=== PATIENT | male | born 1940 | race Caucasian/White ===

== ENCOUNTER → 2017-12-12 | Outpatient (CLI) | payer MEDICARE, OTHER ==
[~2017-12-12] MED LIST: APAP650 PO; ASA81BEC PO; ASPIRIN325 PO; BENTYL 20 MG TA20 M1 PO; CIPRO500 MG PO; FLEXERIL PO; FOLIC ACID1 MG PO; HYDROCODONE-AP1 EAC6 PO; HYDROCODONE-APA1 TA1 PO; KEPPRA 500 MG500 M1 PO; LAMICTAL100 MG PO; LASIX 40 MG TAB40 M2 PO; LIPITOR 20 MG T20 M1 PO; LISINOPRIL10 MG PO; LISINOPRIL5 MG PO; METHOTREXATE 22.5 M1 PO; MULTI VITAMIN1 EACH PO; NORCO 5-325 TA1 EACH PO; PEGANONE PO; PREDNISONE 10 M10 MG PO; PROZAC20 MG PO; PROZAC40 MG PO; SIMVASTATIN40 MG PO; TIKOSYN500 MCG PO; TRAMADOL 50 MG50 MG PO; VANCO 1 GR1 GM/250 M IV; VITAMIN D1000 UNIT PO; XARELTO10 MG PO; XARELTO20 MG PO; ZOCOR20 MG PO; ZOFRAN4 MG PO
== END ==
LOC: M.ULTRA 07:35
DX: R10.31 Right lower quadrant pain (principal)

== ENCOUNTER 2018-03-28 14:50 | Inpatient (IN) | payer MEDICARE, OTHER ==
[~2018-03-28] VITALS: Ht 170.2 cm; Wt 164.3 kg
[~2018-03-28 14:50] MED LIST changes: -APAP650 PO; -FOLIC ACID1 MG PO; -KEPPRA 500 MG500 M1 PO; -MULTI VITAMIN1 EACH PO; -PROZAC20 MG PO; -SIMVASTATIN40 MG PO; -TRAMADOL 50 MG50 MG PO; -VITAMIN D1000 UNIT PO; -XARELTO10 MG PO
[2018-03-28 15:27] LABS: ABSOLUTE BASOPHILS 0.1 thou/uL (0.0-0.2); ABSOLUTE EOSINOPHILS 0.1 thou/uL (0.0-0.7); ABSOLUTE LYMPHOCYTES 0.9 thou/uL (0.8-5.3); ABSOLUTE MONOCYTES 0.6 thou/uL (0.0-1.2); ABSOLUTE NEUTROPHILS 5.2 thou/uL (1.6-8.1); BASOPHILS 0.9 %; EOSINOPHILS 1.4 %; HEMATOCRIT 32.2 % (42.0-52.0); HEMOGLOBIN 10.6 gm/dL (14.0-18.0); MCH 30.8 pg (26.0-34.0); MCV 93.3 fL (80.0-100.0); MONOCYTES 8.2 %; MPV 8.4 fl. (7.2-11.1); NUCLEATED RBCS 0 /100WBC; PLATELET COUNT* 130 thou/uL (150-400); POLYS 76.5 %; RBC 3.46 mil/uL (4.50-6.00); RDW-CV 13.8 % (10.5-14.5); WBC 6.8 thou/uL (4.0-11.0)
[2018-03-28 15:41] LABS: APTT 25.2 Seconds (25.0-31.3); INR 1.1; PROTIME 10.6 Seconds (9.20-11.50)
[2018-03-28 15:42] LABS: ANION GAP 1 mmol/L (7-16); BUN 21 mg/dL (7-18); CHLORIDE 107 mmol/L (98-107); CO2 32 mmol/L (21-32); CREATININE 1.4 mg/dL (0.6-1.3); GLUCOSE 116 mg/dL (70-99); POTASSIUM 4.4 mmol/L (3.5-5.1); SODIUM 140 mmol/L (136-145)
[2018-03-28 15:55] LABS: ALBUMIN 3.3 g/dL (3.4-5.0); ALKALINE PHOSPHATASE 74 U/L (46-116); CK-MB MASS 1.7 ng/mL (<0.5-3.6); NT-PRO BRAIN NAT PEPTIDE 1890 pg/mL (<300); SGOT 20 U/L (15-37); SGPT 17 U/L (30-65); TOTAL BILIRUBIN 0.4 mg/dL (<0.1-1.0); TROPONIN-I LEVEL <0.06 ng/mL (<0.06)
[2018-03-28 17:28] VITALS: BP 180/87
[2018-03-28 20:00] VITALS: BP 116/69
[2018-03-29] VITALS (7 sets, daily range): BP systolic 110–181; BP diastolic 55–85
[2018-03-29 11:41] LABS: BE 4.5 mmol/L (-2 to +3); HCO3 28.8 mmol/L (22.0-26.0); PCO2 41.6 mmHg (35.0-45.0); PO2 79.4 mmHg (75.0-100.0); pH 7.458 (7.340-7.450)
[2018-03-30 04:00] VITALS: BP 114/60
[2018-03-30 04:53] LABS: ABSOLUTE BASOPHILS 0.1 thou/uL (0.0-0.2); ABSOLUTE EOSINOPHILS 0.3 thou/uL (0.0-0.7); ABSOLUTE LYMPHOCYTES 1.8 thou/uL (0.8-5.3); ABSOLUTE MONOCYTES 0.6 thou/uL (0.0-1.2); BASOPHILS 1.1 %; EOSINOPHILS 4.2 %; HEMATOCRIT 31.2 % (42.0-52.0); HEMOGLOBIN 10.4 gm/dL (14.0-18.0); LYMPHOCYTES 26.4 %; MCH 31.2 pg (26.0-34.0); MCHC 33.5 g/dL (28.0-37.0); MONOCYTES 8.7 %; NUCLEATED RBCS 0 /100WBC; PLATELET COUNT* 124 thou/uL (150-400); POLYS 59.6 %; RBC 3.35 mil/uL (4.50-6.00); RDW-CV 13.9 % (10.5-14.5); WBC 6.7 thou/uL (4.0-11.0)
[2018-03-30 04:57] LABS: CALCIUM 8.9 mg/dL (8.5-10.1); CREATININE 1.4 mg/dL (0.6-1.3); POTASSIUM 4.3 mmol/L (3.5-5.1)
[2018-03-30 08:15] VITALS: BP 136/74
[2018-03-30 12:02] VITALS: BP 136/74
[2018-03-30 13:09] VITALS: BP 87/47
--- NOTE | 2018-03-30 14:41 | EKG ---
[place] [address] ELECTROCARDIOGRAM REPORT Name: MICHAEL ANDERSON Room: [address] IN [facility].#: [id number] Admission: 03/28/18 Attend Phys: Kita Blackburn Discharge: Date of : 38 Report #: [id number] THIS REPORT FOR: //name// [facility] ED Test Date: 2018-03-28 Test Time: 15:00:52 Pat Name: MICHAEL ANDERSON Department: Room: Gender: Truck Driver Instructor: Dianna JACKSON : 1940 Requested By: Scar Bryant Order Number: [id number] MD: Davis Carrasquillo Measurements Intervals [place] Rate: 73 P: 4 TX: 248 QRS: 10 QRSD: 162 T: 157 QT: 460 QTc: 507 Interpretive Statements Sinus rhythm Atrial premature complexes Prolonged TX interval Probable left atrial enlargement Left bundle branch block Compared to ECG 08/15/2017 17:25:48 Atrial premature complex(es) now present First degree AV block now present Left bundle-branch block now present Electronically Signed On 03-30-2018 14:41:35 CDT by Davis Carrasquillo [email or web address] <ELECTRONICALLY SIGNED> By: Davis Carrasquillo MD, FAC 03/30/18 1441 1500 1500 Davis Carrasquillo MD, FAC /EPI
[2018-03-30 20:00] VITALS: BP 147/71
[2018-03-31] VITALS: BP 140/77
[2018-03-31 04:00] VITALS: BP 136/81
[2018-03-31 07:51] VITALS: BP 132/70
[2018-03-31 12:00] VITALS: BP 126/57
[2018-03-31 15:27] LABS: URINE BILIRUBIN NEGATIVE (Negative); URINE BLOOD 3+ (Negative); URINE CLARITY CLEAR; URINE COLOR YELLOW; URINE GLUCOSE-RANDOM NEGATIVE (Negative); URINE KETONES NEGATIVE (Negative); URINE LEUKOCYTES-REFLEX NEGATIVE (Negative); URINE NITRITE-REFLEX NEGATIVE (Negative); URINE PROTEIN NEGATIVE (Negative); URINE UROBILINOGEN 0.2 E.U./dl (0.2-1.0)
[2018-03-31 15:35] LABS: BACTERIA-REFLEX 1-9 Few /HPF (None Seen); CRYSTALS None Seen /LPF (None Seen); HYALINE CASTS 4-10 Moderate /LPF (None Seen); SQUAMOUS 0-3 Few /LPF (0-3); URINE RBC >20 Many /HPF (0-2); URINE WBC-REFLEX 0-5 Rare /HPF (0-5)
[2018-03-31 16:00] VITALS: BP 120/49
[2018-03-31 20:00] VITALS: BP 126/54
[2018-04-01] VITALS: BP 146/74
[2018-04-01 04:00] VITALS: BP 99/61
[2018-04-01 04:53] LABS: CALCIUM 8.8 mg/dL (8.5-10.1); CREATININE 1.5 mg/dL (0.6-1.3); POTASSIUM 4.6 mmol/L (3.5-5.1)
[2018-04-01 08:00] VITALS: BP 106/50
[2018-04-01 12:00] VITALS: BP 120/60
[2018-04-01] MEDS ORDERED: TRAMADOL 50 MG50 MG PO (12:02)
[2018-04-01 12:47] LABS: CALCIUM 8.9 mg/dL (8.5-10.1); CREATININE 1.8 mg/dL (0.6-1.3); POTASSIUM 4.9 mmol/L (3.5-5.1)
[2018-04-01 14:18] VITALS: BP 158/69
[2018-04-01] MEDS ORDERED: LISINOPRIL10 MG PO (14:45)
[2018-04-01] MEDS ORDERED: APAP650 PO (14:46)
[2018-04-01] MEDS ORDERED: PROZAC20 MG PO (14:46)
[2018-04-01] MEDS ORDERED: VITAMIN D1000 UNIT PO (14:48)
[2018-04-01 16:00] VITALS: BP 144/69
[2018-06-08] MEDS ORDERED: LASIX 20 MG TAB20 MG PO (14:20)
== END 2018-04-01 18:15 | DRG 57 ==
LOC: M.ERS 14:50 → M.TBA-ER 16:32 → M.2W 16:32
PROVIDERS: Family Medicine; Physician Assistant Surgical; ADMIT Internal Medicine
DX: G31.83 Neurocognitive disorder with Lewy bodies (principal); I50.32 Chronic diastolic (congestive) heart failure; G40.909 Epilepsy, unspecified, not intractable, without status epilepticus; I65.23 Occlusion and stenosis of bilateral carotid arteries; E78.5 Hyperlipidemia, unspecified; M06.9 Rheumatoid arthritis, unspecified; F02.80 Dementia in other diseases classified elsewhere, unspecified severity, without behavioral disturbance, psychotic disturbance, mood disturbance, and anxiety; I73.9 Peripheral vascular disease, unspecified; F32.9 Major depressive disorder, single episode, unspecified; G47.30 Sleep apnea, unspecified; Z96.651 Presence of right artificial knee joint; Z88.6 Allergy status to analgesic agent; Z79.82 Long term (current) use of aspirin; Z79.899 Other long term (current) drug therapy; Z95.1 Presence of aortocoronary bypass graft; Z95.5 Presence of coronary angioplasty implant and graft; Z86.73 Personal history of transient ischemic attack (TIA), and cerebral infarction without residual deficits; Z87.891 Personal history of nicotine dependence; Z82.49 Family history of ischemic heart disease and other diseases of the circulatory system

== ENCOUNTER 2018-05-19 13:21 | Emergency (ER) | payer MEDICARE, OTHER ==
[~2018-05-19] VITALS: Ht 170.2 cm; Wt 72.6 kg
[~2018-05-19 13:21] MED LIST changes: +APAP650 PO; +PROZAC20 MG PO; +TRAMADOL 50 MG50 MG PO; +VITAMIN D1000 UNIT PO
[2018-05-19 14:05] LABS: ABSOLUTE BASOPHILS 0.1 thou/uL (0.0-0.2); ABSOLUTE LYMPHOCYTES 0.8 thou/uL (0.8-5.3); ABSOLUTE MONOCYTES 0.6 thou/uL (0.0-1.2); BASOPHILS 0.7 %; EOSINOPHILS 0.6 %; HEMATOCRIT 31.3 % (42.0-52.0); HEMOGLOBIN 10.4 gm/dL (14.0-18.0); LYMPHOCYTES 10.7 %; MCH 30.9 pg (26.0-34.0); MCHC 33.1 g/dL (28.0-37.0); MCV 93.3 fL (80.0-100.0); MONOCYTES 7.9 %; NUCLEATED RBCS 0 /100WBC; PLATELET COUNT* 131 thou/uL (150-400); POLYS 80.1 %; RBC 3.35 mil/uL (4.50-6.00); RDW-CV 14.8 % (10.5-14.5); WBC 7.5 thou/uL (4.0-11.0)
[2018-05-19 14:06] LABS: URINE BILIRUBIN NEGATIVE (Negative); URINE BLOOD TRACE (Negative); URINE CLARITY CLEAR; URINE COLOR YELLOW; URINE GLUCOSE-RANDOM NEGATIVE (Negative); URINE KETONES TRACE (Negative); URINE LEUKOCYTES-REFLEX NEGATIVE (Negative); URINE NITRITE-REFLEX NEGATIVE (Negative); URINE PROTEIN TRACE (Negative); URINE SPECIFIC GRAVITY 1.015 (1.005-1.030); URINE UROBILINOGEN 0.2 E.U./dl (0.2-1.0)
[2018-05-19 14:14] LABS: ANION GAP 8 mmol/L (7-16); BUN 38 mg/dL (7-18); CALCIUM 8.5 mg/dL (8.5-10.1); CHLORIDE 102 mmol/L (98-107); CO2 26 mmol/L (21-32); CREATININE 2.7 mg/dL (0.6-1.3); GLUCOSE 112 mg/dL (70-99); POTASSIUM 4.7 mmol/L (3.5-5.1); SODIUM 136 mmol/L (136-145)
[2018-05-19 14:20] LABS: ALBUMIN 3.3 g/dL (3.4-5.0); ALKALINE PHOSPHATASE 78 U/L (46-116); SGOT 20 U/L (15-37); SGPT 17 U/L (30-65); TOTAL BILIRUBIN 0.3 mg/dL (<0.1-1.0); TROPONIN-I LEVEL <0.06 ng/mL (<0.06)
[2018-05-19 14:59] VITALS: BP 141/80
[2018-06-08] MEDS ORDERED: LASIX 20 MG TAB20 MG PO (14:20)
== END 2018-05-19 15:00 | disposition home or self-care (01) ==
LOC: M.ERS 13:21
PROVIDERS: Physician Assistant
DX: R53.1 Weakness (principal); E86.0 Dehydration; G47.30 Sleep apnea, unspecified; M06.9 Rheumatoid arthritis, unspecified; Z96.651 Presence of right artificial knee joint; Z91.041 Radiographic dye allergy status; Z88.6 Allergy status to analgesic agent; Z95.1 Presence of aortocoronary bypass graft; Z95.5 Presence of coronary angioplasty implant and graft

== ENCOUNTER 2018-06-08 14:04 | Inpatient (IN) | payer MEDICARE, OTHER ==
[~2018-06-08] VITALS: Ht 182.9 cm; Wt 80.7 kg
[2018-06-08 14:05] VITALS: BP 134/50
--- NOTE | 2018-06-08 14:17 | NUR ---
PT CAME IN AND WAS CLEAND OF STOOL.
[2018-06-08] MEDS ORDERED: SIMVASTATIN40 MG PO (14:20)
[2018-06-08] MEDS ORDERED: LASIX 40 MG TAB40 M2 PO (14:20)
[2018-06-08] MEDS ORDERED: FOLIC ACID1 MG PO (14:22)
[2018-06-08] MEDS ORDERED: MULTI VITAMIN1 EACH PO (14:22)
[2018-06-08 14:37] LABS: HEMOGLOBIN 11.2 gm/dL (14.0-18.0); MCH 30.6 pg (26.0-34.0); MCV 92.7 fL (80.0-100.0); MPV 8.2 fl. (7.2-11.1); NUCLEATED RBCS 0 /100WBC; PLATELET COUNT* 143 thou/uL (150-400); RBC 3.66 mil/uL (4.50-6.00); RDW-CV 14.6 % (10.5-14.5)
[2018-06-08 14:47] LABS: CALCIUM 8.5 mg/dL (8.5-10.1); CREATININE 2.1 mg/dL (0.6-1.3); POTASSIUM 4.3 mmol/L (3.5-5.1)
[2018-06-08 14:48] LABS: APTT 24.7 Seconds (25.0-31.3); INR 1.1; PROTIME 11.1 Seconds (9.20-11.50)
[2018-06-08 14:59] LABS: ALBUMIN 3.4 g/dL (3.4-5.0); TOTAL BILIRUBIN 0.3 mg/dL (<0.1-1.0); TOTAL PROTEIN 7.8 g/dL (6.4-8.2)
[2018-06-08 15:01] LABS: TROPONIN-I LEVEL 1.1 ng/mL (<0.06)
[2018-06-08 15:13] LABS: ABSOLUTE LYMPHOCYTES 0.5 thou/uL (0.8-5.3); ABSOLUTE MONOCYTES 0.3 thou/uL (0.0-1.2); ABSOLUTE NEUTROPHILS 12.2 thou/uL (1.6-8.1)
[2018-06-08 18:23] VITALS: BP 124/70
--- NOTE | 2018-06-08 18:45 | NUR ---
PATIENT ADMITTED FROM ER TO ROOM 210 AT THIS TIME. ALERT AND ORIENTED X3. FORGETFUL. DENIES PAIN CURRENTLY, BUT DID HAVE BACK PAIN IN ER CONTROLLED WITH FENTANYL. DENIES CHEST PAIN, REPORTS FEELING SOB YESTERDAY AT HOME. BRUSING AND KNOT NOTED TO LEFT SIDE OF HEAD. BRUISING TO BILAT FEET/TOES. TOES CHRONICALLY SUBLAXED. PATIENT WAS FOUND ON FLOOR BY HOME HEALTH THERAPIST TODAY FOR UNKNOWN AMOUNT OF TIME. SERIAL TROPONINS ORDERED. O2 2L. VSS. ORIENTED TO ROOM AND ENVIROMENT. BED ALARM SET. WILL CONTINUE TO MONITOR.
[2018-06-08 18:48] VITALS: BP 118/62
[2018-06-08 20:00] VITALS: BP 109/53
[2018-06-09] VITALS: BP 140/72
[2018-06-09 04:00] VITALS: BP 140/78
[2018-06-09 05:50] LABS: HEMATOCRIT 29.9 % (42.0-52.0); HEMOGLOBIN 10.1 gm/dL (14.0-18.0); MCH 31.2 pg (26.0-34.0); MCHC 33.6 g/dL (28.0-37.0); MCV 92.8 fL (80.0-100.0); MPV 8.4 fl. (7.2-11.1); RBC 3.22 mil/uL (4.50-6.00); RDW-CV 14.6 % (10.5-14.5); WBC 9.8 thou/uL (4.0-11.0)
[2018-06-09 06:16] LABS: ALBUMIN 2.9 g/dL (3.4-5.0); CALCIUM 7.9 mg/dL (8.5-10.1); CREATININE 1.6 mg/dL (0.6-1.3); MAGNESIUM 2.1 mg/dL (1.8-2.4); POTASSIUM 4.5 mmol/L (3.5-5.1); TOTAL BILIRUBIN 0.4 mg/dL (<0.1-1.0); TOTAL PROTEIN 6.3 g/dL (6.4-8.2)
[2018-06-09 08:00] VITALS: BP 138/92
--- NOTE | 2018-06-09 14:11 | EKG ---
[place] [address] ELECTROCARDIOGRAM REPORT Name: MICHAEL ANDERSON Room: [address] ADM IN M.R.#: [id number] Admission: 06/08/18 Attend Phys: Breonna Campos MD Discharge: Date of : 38 Report #: [id number] THIS REPORT FOR: //name// [facility] ED Test Date: 2018-06-08 Test Time: 14:22:53 Pat Name: MICHAEL ANDERSON Department: Room: [facility] Gender: M Ux Engineer: : 1940 Requested By: Cristi Arteaga Order Number: [id number] MD: Davis Carrasquillo Measurements Intervals [place] Rate: 99 P: 223 OK: 126 QRS: 14 QRSD: 160 T: 176 QT: 411 QTc: 528 Interpretive Statements Sinus rhythm with first degree AV block Multiple ventricular premature complexes Left bundle branch block Compared to ECG 03/28/2018 15:00:52 Ventricular premature complex(es) now present Atrial premature complex(es) no longer present Electronically Signed On 06-09-2018 14:11:06 CDT by Davis Carrasquillo [email or web address] <ELECTRONICALLY SIGNED> By: Davis Carrasquillo MD, [facility] 06/09/18 1411 1422 1422 Davis Carrasquillo MD, [facility] /EPI
--- NOTE | 2018-06-09 15:10 | 2DMMODE ---
[place] [address] 2 D/M-MODE ECHOCARDIOGRAM Name: JUSTINMICHAEL Room: [address] IN [facility]#: [id number] Admission: 06/08/18 Attend Phys: Breonna Campos, Discharge: Date of : 38 Date of Service: 06/09/18 1510 Report #: [id number] THIS REPORT FOR: //name// APPROVED REPORT Study performed: 06/09/2018 11:35:15 EXAM: Comprehensive 2D, Doppler, and color-flow Echocardiogram Patient Location: In-Patient Room #: 210 Status: routine BSA: 2.18 HR: 80 bpm BP: 138/92 mmHg Rhythm: NSR Other Information Study Quality: Good Indications Murmur Syncope Elevated Troponin 2D Dimensions IVSd: 18.87 (7-11mm) LVOT Diam: 19.96 (18-24mm) LVDd: 46.10 mm PWd: 10.94 (7-11mm) Ascending Ao: 26.12 (22-36mm) LVDs: 34.49 (25-40mm) Aortic Root: 29.73 mm Volumes Left Atrial Volume (Systole) LA ESV Index: 34.60 mL/m2 Aortic Valve AoV Peak Mark.: 2.29 m/s AO Peak Gr.: 21.06 mmHg LVOT Max P.17 mmHg AO Mean Gr.: 10.42 mmHg LVOT Mean P.54 mmHg LVOT Max V: 1.14 m/s AO V2 VTI: 33.83 cm LVOT Mean V: 0.74 m/s SERGIO (VTI): 1.64 cm2 LVOT V1 VTI: 17.72 cm Mitral Valve E/A Ratio: 0.60 [place] [address] 2 D/M-MODE ECHOCARDIOGRAM Name: MICHAEL ANDERSON Room: [address] IN M.R.#: [id number] Admission: 06/08/18 Attend Phys: Breonna Campos, Discharge: Date of : 38 Date of Service: 06/09/18 1510 Report #: [id number] MV Decel. Time: 410.24 ms MV E Max Mark.: 0.73 m/s MV PHT: 118.97 ms MVA (PHT): 1.85 cm2 TDI E/Lateral E': 6.64 E/Medial E': 10.43 Medial E' Mark.: 0.07 m/s Lateral E' Mark.: 0.11 m/s Pulmonary Valve PV Peak Mark.: 1.16 m/s PV Peak Gr.: 5.34 mmHg Left Ventricle The left ventricle is normal size. Significant left ventricular systolic is dyssynergy noted consistent with bundle branch block. Moderate septal hypertrophy is present. Left ventricular systolic function is mildly decreased. LVEF is 40-45%. Grade I - abnormal relaxation pattern. Right Ventricle The right ventricle is normal size. The right ventricular systolic function is normal. Atria Left atrium is mildly dilated. Right atrium is mildly dilated. Aortic Valve Bioprosthetic aortic valve is present. Trace aortic regurgitation. No significant stenosis noted. Mitral Valve The mitral valve is normal in structure. Mild mitral regurgitation. No evidence of mitral valve stenosis. Tricuspid Valve The tricuspid valve is normal in structure. Unable to assess PA pressure. Trace tricuspid regurgitation. Pulmonic Valve The pulmonary valve is normal in structure. There is no pulmonic valvular regurgitation. Great Vessels The aortic root is normal in size[place] [address] 2 D/M-MODE ECHOCARDIOGRAM Name: MICHAEL ANDERSON Room: [address]#: [id number] Admission: 06/08/18 Attend Phys: Breonna Campos, Discharge: Date of : 38 Date of Service: 06/09/18 1510 Report #: [id number] visualized. Pericardium There is no pericardial effusion. <Conclusion> The left ventricle is normal size. Moderate septal hypertrophy is present. Left ventricular systolic function is mildly decreased. LVEF is 40-45%. Grade I - abnormal relaxation pattern. Significant left ventricular systolic is dyssynergy noted consistent with bundle branch block. Left atrium is mildly dilated. Right atrium is mildly dilated. Bioprosthetic aortic valve is present. Trace aortic regurgitation. No significant stenosis noted. Mild mitral regurgitation. Unable to assess PA pressure. Trace tricuspid regurgitation. <ELECTRONICALLY SIGNED> By: Carlos A Nascimento MD, FACC 06/09/181509 09 09 Carlos A Nascimento MD, FACC /INF
[2018-06-09 15:23] VITALS: BP 103/58
--- NOTE | 2018-06-09 15:59 | NUR ---
Pt A&O. Reports feeling weak and tired today, in agreement with going to skilled at sd, and wants to go to [facility]. Hx of skilled at [facility]. Hx of [facility] . Pt normally resides at home with his , is currently inpt also. is normally assists Pt at home. Pt has a walker and cane that he uses for mobility. CM to fax initial referral to [facility]. Following.
--- NOTE | 2018-06-09 17:44 | CARDNUC ---
[place] [address] CARDIAC NUCLEAR IMAGING REPORT Name: JUSTINMICHAEL Beverly Room: [address] IN [facility]#: [id number] Admission: 06/08/18 Attend Phys: Breonna Campos, Discharge: Date of : 38 Date of Service: 06/09/18 1744 Report #: [id number] THIS REPORT FOR: //name// APPROVED REPORT Study performed: 06/09/2018 07:45:00 Indication: Troponin elevation, Chest pain Patient Location: In-Patient Room #: 210 Stress Tech: Celena Medrano Stress Nurse: Yamileth Marin RN Ht: 6 ft 1 in Wt: 210 lbs BSA: 2.20 m2 BMI: 27.70 Medical History Medical History: Angina, CAD, HTN, Hyperlipidemia, Former Smoker, HTN, CKD, , Stroke/TIA, Seizures, Systolic murmur, Aortic Stenosis, Alcoholism Medications: ASA 81 mg, Furosemide, Lisinopril, Xarelto, Atorvastatin, Dofetilide Allergies: Contrast dye, Morphine Cardiac Risk Factors: Age, FHX of CAD, HTN, Hyperlipidemia, Past Smoker Previous Cardiac Procedures: CABG, PCI Pretest Chest Pain Characteristics: No chest pain Exercise History: Sedentary Physical Disabilities: High fall risk, recent fall. Resting Data Rest SPECT myocardial perfusion imaging was performed in supine position 30 minutes following the intravenous injection of 11.9 mCi of Tc-99m Sestamibi. Time of rest injection: 11:50 The images were gated to evaluate regional wall motion and calculate left ventricular ejection fraction. Administration Route: IV Administration Site: Left AC Pharmacologic Stress Pharmacologic stress test was performed by injecting Regadenoson 0.4 mg IV push over 10-15 seconds immediately followed by the intravenous injection of 32.9 mCi of Tc-99m Sestamibi. Time of stress injection: 13:50 [place] [address] CARDIAC NUCLEAR IMAGING REPORT Name: MICHAEL ANDERSON Room: [address] IN [facility]#: [id number] Admission: 06/08/18 Attend Phys: Breonna Campos, Discharge: Date of : 38 Date of Service: 06/09/18 1744 Report #: [id number] Administration Route: IV Administration Site: Left AC Heart Rate at time of stress injection: 97 bpm. Gated Stress SPECT was performed 40 minutes after stress injection. The images were gated to evaluate regional wall motion and calculate left ventricular ejection fraction. Stress Test Details Stress Test: Pharmacologic stress testing performed using 0.4 mg of regadenoson per 5 mL given IV over 10 seconds. Reason for pharmacologic stress test: physical limitation. HR Max Heart Rate (APMHR): 141 bpm Resting HR: 88 bpm Target HR (85% APMHR): 119 bpm Max HR Achieved: 97 bpm % of APMHR: 68 Recovery HR: 94 bpm BP Resting BP: 137/80 mmHg Recovery BP: 128/62 mmHg ECG Resting ECG: Sinus Rhythm, LBBB Stress ECG: Sinus Rhythm, LBBB ST Change: None Arrhythmia: None Recovery ECG: Sinus Rhythm, LBBB Recovery ST Change: None Recovery Arrhythmia: None Clinical Reason for Termination: Completed protocol Stress Symptoms: None Exercise duration: 0 min 0 sec Exercise capacity: 1.00 METs The patient tolerated Lexiscan infusion without significant symptoms. Nurse Comments Patient tolerated lexiscan while lying down, poor physical condition, unable to move much. Patient given Tramadol for pain by floor nurse prior to lexiscan. Systolic murmur reported but not heard on auscultation during this visit. Pt stable at end of test. Escorted via wheelchair to [facility] [place] [address] CARDIAC NUCLEAR IMAGING REPORT Name: MICHAEL ANDERSON Beverly Room: [address]#: [id number] Admission: 06/08/18 Attend Phys: Breonna Campos, Discharge: Date of : 38 Date of Service: 06/09/18 1744 Report #: [id number] Stress ECG Conclusion The baseline 12-lead EKG showed sinus rhythm with left bundle-branch block. EKGs obtained during and post Lexiscan infusion show sinus rhythm with left bundle-branch block. There were no stress-induced arrhythmias. Study Quality Study: Good Artifact: No artifact Study Data At rest, the left ventricular ejection fraction was 56%.. Post stress, the left ventricular ejection was 59%.. TID = 0.91. Perfusion Normal left ventricular perfusion. Wall Motion There is dyssynergy noted consistent with left bundle-branch block. There is a septal wall motion abnormality noted consistent with prior bypass procedure. Overall left ventricular systolic function is fairly well preserved. Nuclear Conclusion ECG Findings: non-diagnostic Clinical Findings: negative for ischemia Nuclear Findings: negative for ischemia Exercise Capacity: not assessed Left Ventricular Function: preserved Risk Study: low Myocardial perfusion images show no defect to suggest infarct or ischemia. Left ventricular systolic function is fairly well-preserved. This appears to be a low risk study. <Conclusion> The baseline 12-lead EKG showed sinus rhythm with left bundle-branch block. EKGs obtained during and post Lexiscan infusion show sinus rhythm with left bundle-branch block. There were no stress-induced arrhythmias. <ELECTRONICALLY SIGNED> By: Carlos A Nascimento MD, FACC 06/09/18 1744 174 174 Carlos A Nascimento MD, FACC /INF
[2018-06-09 20:00] VITALS: BP 98/58
[2018-06-10] VITALS: BP 174/82
[2018-06-10 04:00] VITALS: BP 141/87
[2018-06-10 05:01] LABS: HEMATOCRIT 29.9 % (42.0-52.0); HEMOGLOBIN 10.1 gm/dL (14.0-18.0); MCH 31.4 pg (26.0-34.0); MCHC 33.7 g/dL (28.0-37.0); MCV 93.2 fL (80.0-100.0); MPV 8.3 fl. (7.2-11.1); RBC 3.21 mil/uL (4.50-6.00); RDW-CV 14.2 % (10.5-14.5); WBC 9.8 thou/uL (4.0-11.0)
[2018-06-10 05:32] LABS: CALCIUM 8.3 mg/dL (8.5-10.1); CREATININE 1.5 mg/dL (0.6-1.3); MAGNESIUM 2.1 mg/dL (1.8-2.4); POTASSIUM 4.4 mmol/L (3.5-5.1)
--- NOTE | 2018-06-10 06:37 | NUR ---
PT ALERT ORIENTED TO SELF. CO OF L KNEE PAIN. TRAMADOL GIVEN. TURN Q 2 HRS. TELEMETRY SHOWS SR BBB. O2 AT 2 LITERS NC. NS AT 100MLS/HR.
--- NOTE | 2018-06-10 06:59 | NUR ---
PT HAD NO UOP AT [facility]. BLADDER SCAN 940MLS. DR DUGAN ORDERED A ONE TIME STRAIGHT CATH. 90MLS CLEAR YELLOW RETURN. BLADDER SCAN 0700 407MLS.
[2018-06-10 07:35] VITALS: BP 178/93
--- NOTE | 2018-06-10 08:48 | CON ---
[address] [address] CONSULTATION Name: JUSTINMICHAEL Beverly Room: [address] IN .R.#: [id number] Admission: 06/08/18 Attend Phys: Breonna Campos MD Discharge: Date of : 38 Report #: [id number] THIS REPORT FOR: //name// CC: Elmer Campos INDICATION: Elevated troponin, consistent with non-ST elevation myocardial infarction. HISTORY OF PRESENT ILLNESS: The patient is a very pleasant 78-year-old gentleman with a history of coronary artery disease and coronary artery bypass grafting on 2 separate occasions in the remote past. He has a history of paroxysmal atrial fibrillation. He has a history of TIA and CVA remotely and had been transiently anticoagulated, but is not on anticoagulation presently. The patient apparently fell at home, although the details are somewhat sketchy. He is slightly confused at this time. At times, he has reported that he fell in his bathroom, other times he reports that he fell outside. He does appear to have some contusions involving his left knee and shoulder area. No overt fractures noted. In this setting, he does report some intermittent chest pain. He did have an elevated troponin with a peak of 1.23 here in the hospital. His troponin is now trending downward. He denies any chest pain at this time. He is not having shortness of breath. He is without other cardiac complaint at this time. He does have a history of wjmayuty-rb-vqxbye aortic stenosis. PAST MEDICAL HISTORY: 1. Coronary artery disease with coronary artery bypass grafting times 2 in the past. 2. Carotid vascular disease with previous left carotid endarterectomy and right carotid stenting. 3. Ccghwwqf-va-qwwusu aortic stenosis. 4. Paroxysmal atrial fibrillation. 5. Chronic renal insufficiency. 6. Previous renal artery stenosis with stenting. 7. Hyperlipidemia. 8. History of total knee replacement. 9. Previous foot surgeries. 10. Dementia. 11. History of rheumatoid arthritis. 12. Hyperlipidemia. 13. Sleep apnea. 14. Right knee replacement. 15. Previous left wrist and elbow fracture. 16. Previous right wrist fracture. 17. Cerebral bleed 2003 from trauma. 18. Vagal nerve stimulator [place] [address] CONSULTATION Name: MICHAEL ANDERSON Room: [address]#: [id number] Admission: 06/08/18 Attend Phys: Breonna Campos MD Discharge: Date of : 38 Report #: [id number] SOCIAL HISTORY: The patient drinks alcohol rarely. He does not smoke. He quit remotely. FAMILY HISTORY: Noncontributory. HOME MEDICATIONS: Aspirin 81 mg daily, Tikosyn 500 mg b.i.d., Peganone 250 mg 1 tablet dinnertime, Prozac 20 mg daily, folate 1 mg daily, Lasix 40 mg daily, Lamictal 100 mg q.i.d., lisinopril 10 mg daily, multivitamin 1 tablet daily, simvastatin 40 mg in the evening, tramadol 50 mg q. 4 hours p.r.n. ALLERGIES: CONTRAST DYE AND MORPHINE. PHYSICAL EXAMINATION: VITAL SIGNS: Blood pressure 140/78, pulse 82 and regular. GENERAL: This is a pleasant gentleman in no distress. Mood and affect appropriate. HEENT: Extraocular muscles intact. Mucous membranes are moist. NECK: Shows no jugular venous distention. I do not appreciate carotid bruit. CHEST: Reveals clear lung elkins without wheezes or rales. CARDIAC: Reveals a regular rhythm with grade 3/6 systolic ejection murmur. I do not appreciate gallop. ABDOMEN: Reveals normal bowel sounds. The abdomen is soft, nontender. EXTREMITIES: Shows no edema. SKIN: Warm and dry. LABORATORY DATA: EKG shows sinus rhythm with first degree AV block and left bundle branch block. Labs are reviewed. Sodium 139, potassium 4.5, chloride 106, bicarbonate 26, BUN 35, creatinine 1.6, serum glucose 113. LFTs within normal limits. EGFR 42, albumin 2.9, total protein 6.3. White blood cell count 9.8, hemoglobin 10.1, platelet count 120,000. Initial troponin 1.01, subsequently 1.23, 0.88 and 0.69. Chest x-ray shows scarring of the lung bases, battery pack noted in the left chest wall with cervical electrodes in place. There appears to be a transcutaneous aortic valve replacement in place. IMPRESSION AND RECOMMENDATIONS: 1. Elevated troponin consistent with non-ST elevation myocardial infarction. The patient has history of coronary artery disease with CABG on 2 separate occasions. At this point in time, he is not having active chest pain. I would recommend stress testing and consider catheterization depending on the extent of ischemia identified. 2. Aortic valve stenosis, status post transcutaneous aortic valve replacement, repeat echocardiogram at this time. 3. Paroxysmal atrial fibrillation. The patient is maintaining sinus rhythm on [address] [place] [place] [address] CONSULTATION Name: MICHAEL ANDERSON Room: [address] IN .R.#: [id number] Admission: 06/08/18 Attend Phys: Breonna Campos MD Discharge: Date of : 38 Report #: [id number] Tikosyn. I would consider resuming Xarelto 20 mg daily as the patient does not have any overt bleeding problems. 4. History of hyperlipidemia. Continue simvastatin. Repeat fasting lipid profile. 5. Peripheral vascular disease, presently stable. He is not having these symptoms to suggest transient ischemic attack or stroke. He is not having any symptoms to suggest claudication. <ELECTRONICALLY SIGNED> By: Carlos A Nascimento MD, FACC 06/10/18 0848 0756 [id number] Nascimento MD, FACC /nt
[2018-06-10 10:21] LABS: URINE BILIRUBIN NEGATIVE (Negative); URINE BLOOD 3+ (Negative); URINE CLARITY CLEAR; URINE COLOR YELLOW; URINE GLUCOSE-RANDOM NEGATIVE (Negative); URINE KETONES NEGATIVE (Negative); URINE LEUKOCYTES-REFLEX NEGATIVE (Negative); URINE NITRITE-REFLEX NEGATIVE (Negative); URINE PROTEIN TRACE (Negative); URINE SPECIFIC GRAVITY 1.025 (1.005-1.030); URINE UROBILINOGEN 0.2 E.U./dl (0.2-1.0)
[2018-06-10 10:26] LABS: BACTERIA-REFLEX 1-9 Few /HPF (None Seen); CRYSTALS None Seen /LPF (None Seen); HYALINE CASTS 4-10 Moderate /LPF (None Seen); MUCUS 0-3 Light strn/LPF (None Seen); SQUAMOUS 0-3 Few /LPF (0-3); URINE WBC-REFLEX 0-5 Rare /HPF (0-5)
--- NOTE | 2018-06-10 11:05 | NUR ---
Mignon from [facility] here to see Pt, they are able to accept Pt at dc. Anticipate that Pt should be ready to dc within the next few days.
[2018-06-10 11:50] VITALS: BP 128/72
[2018-06-10 15:19] VITALS: BP 116/69
[2018-06-10 19:04] LABS: CHOLESTEROL 139 mg/dL (<200); HDL CHOLESTEROL 50 mg/dL (>40); LDL CHOLESTEROL 81 mg/dL (<100); TC:HDL 2.8 Ratio (Not establshd); TRIGLYCERIDE 43 mg/dL (<150); VLDL 9 mg/dL (<40)
[2018-06-10 19:08] LABS: SERUM ASSESSMENT Clear
[2018-06-10 20:00] VITALS: BP 147/80
[2018-06-11] VITALS: BP 147/72
[2018-06-11 04:00] VITALS: BP 103/55; BP 162/60
[2018-06-11 05:13] LABS: HEMATOCRIT 27.4 % (42.0-52.0); HEMOGLOBIN 9.2 gm/dL (14.0-18.0); MCH 31.1 pg (26.0-34.0); MCHC 33.7 g/dL (28.0-37.0); MCV 92.4 fL (80.0-100.0); MPV 8.1 fl. (7.2-11.1); RBC 2.96 mil/uL (4.50-6.00); RDW-CV 14.4 % (10.5-14.5); WBC 10.4 thou/uL (4.0-11.0)
[2018-06-11 05:32] LABS: CALCIUM 9.1 mg/dL (8.5-10.1); CREATININE 1.3 mg/dL (0.6-1.3); MAGNESIUM 1.9 mg/dL (1.8-2.4); POTASSIUM 4.5 mmol/L (3.5-5.1)
--- NOTE | 2018-06-11 06:02 | NUR ---
VITALS WNL. SEE MAR. SEE CHARTING. FALL PRECAUTIONS IN PLACE. HOURLY ROUNDING FOR SAFETY.
[2018-06-11 11:30] VITALS: BP 89/54
--- NOTE | 2018-06-11 12:02 | NUR ---
ASSUMED PT CARE AT 0730. VSS CHARTED. CONFUSE AND FORGETFUL. ORIENTED TO TIME AND SITUATION. CALL LIGHTS WITHIN REACH. FALL PRECAUTIONS MAINTAINED. HOURLY ROUNDING DONE FOR PATIENT SAFETY. STATED PAIN WHILE COUGHING IN CHEST, DENIES PAIN MEDICATION. UP WITH ASSIST AND WALKER. SAT MAINTAINED AT 2L OXYGEN WITH NASAL CANNULA.WILL CONTINUE TO MONITOR.
--- NOTE | 2018-06-11 14:48 | NUR ---
PT SEEN SITTING IN BDSIDE CHAIR COMFORTABLY. VSS AND CHARTED. O2 TITRATED DOWN TO 1L, WILL CONTINUE TO MONITOR THE SAT. CALL LIGHT WITHIN REACH. FALL PREACAUTIONS MAINTAINED. HYATT CLAMPED TO SEE IF HE HAS URINARY SENSATION. HAS GOOD APPETITE. NON PRODUCTIVE COUGH OBSERVED, COUGHING EFFORT FAIR. WILL CONTINUE TO MONIOR.
[2018-06-11 15:30] VITALS: BP 101/56
--- NOTE | 2018-06-11 18:59 | NUR ---
THIS RN HAS REVIEWED THE ASSESMENT AND NOTES OF TIM MONTGOMERY AND AGREES WITH THE CHARTING.
--- NOTE | 2018-06-11 19:26 | NUR ---
PT SAT NOTED 100% WITH 1L SO TAKEN OUT OF OXYGEN. SAT AT 0715 WAS 95%. UP WITH ASSIST AND WALKER. HYATT CLAMPED TO WATCH FOR SENSATION, NO SENSATION REPORTED SO RELEASED. ONLY HAD 50ML IN BLADDER AFTER CLAMP RELEASED. HYATT STILL DRAINING AT THIS TIME. NO SOA. NON PRODUCTIVE COUGH NOTED. GOOD APPETITE.
[2018-06-11 20:20] VITALS: BP 133/77
[2018-06-12] VITALS: BP 142/64
[2018-06-12 04:00] VITALS: BP 146/66
[2018-06-12 09:30] VITALS: BP 95/46
[2018-06-12 12:00] VITALS: BP 113/68
--- NOTE | 2018-06-12 14:16 | NUR ---
CHIEF WRITER INFORMED THAT THE PATIENT IS READY TO D/C [facility]. SPOKE TO ABIGAIL TO INFORM OF PATIENT'S D/C AND SHE INFORMS THAT THE FACILITY IS ABLE TO PROVIDE TRANSPORT TODAY AT 1500. FAXED [facility] PATIENT'S D/C ORDERS. SPOKE TO THE PATIENT TO INFORM OF HIS DISCHARGE AND TIME OF TRANSPORT. PATIENT IN AGREEMENT. INFORMED THE RN IN-CHARGE OF THE PATIENT OF THE PATIENT'S TIME OF TRANSPORT AND WHERE TO CALL REPORT. RN IN AGREEMENT. CM WILL REMAIN AVAILABLE TO ASSIST AND FOLLOW NEEDED.
--- NOTE | 2018-06-12 14:47 | NUR ---
ASSUMED PT CARE AT 0700 PT IS ALERT AND ORIENTED X 4 PT DENIES PAIN OR SOA, PT IS UP WITH ASSIST X 1 PT IS A FALL RISK BED ALARM IS ON, PT IS SR 1ST BBB ON THE MONITOR, PT IV OUT PT IS CLEARED FOR DISCHARGE PT HYATT REMOVED PT ABLE TO FEEL SENSATION TO URINATE, WILL CONTINUE TO MONITOR
[2018-06-12] MEDS ORDERED: KEPPRA 500 MG500 M1 PO (15:08)
[2018-06-12] MEDS ORDERED: LIPITOR 20 MG T20 M1 PO (15:09)
[2018-06-12] MEDS ORDERED: LISINOPRIL10 MG PO (15:09)
[2018-06-12] MEDS ORDERED: XARELTO10 MG PO (15:10)
[2018-06-12 15:12] VITALS: BP 113/68
[2018-06-12] MEDS ORDERED: LISINOPRIL5 MG PO ×2 (15:18→15:19)
--- NOTE | 2018-06-15 08:19 | NUR ---
CM updated [facility] [place] of disposition
--- NOTE | 2018-06-22 09:50 | EEG ---
[address] [address] EEG STUDY REPORT Name: MICHAEL ANDERSON Room: [address] IN M.R.#: [id number] Admission: 06/08/18 Attend Phys: Breonna Campos MD Discharge: 06/12/18 Date of : 38 Report #: [id number] THIS REPORT FOR: //name// CC: Elmer Campos DATE OF SERVICE: 06/09/2018 This patient is being evaluated for altered mental status. EEG was done by placing the electrode by standard 10-20 system of electrode placement. Both referential and sequential montages were used for recording. Background activity in this patient's EEG is about 8 Hz and 30 microvolt. The patient went to sleep that is associated with bilateral slowing and vertex sharp waves. Photic stimulation is unremarkable. Throughout the record, no active epileptiform activity was noted. IMPRESSION: This patient's EEG demonstrates bilateral slowing, which is a nonspecific finding which can occur with encephalopathy, effect of psychotropic medication, dementia, etc. No active epileptiform activity was noticed during this record. <ELECTRONICALLY SIGNED> By: Robert Winter MD 06/22/18 0950 1550 [id number] Winter MD /nt
--- NOTE | 2018-06-22 09:50 | CON ---
[facility] [address] [place] [address] CONSULTATION Name: JUSTINJOHNE Beverly Room: [address] IN M.R.#: [id number] Admission: 06/08/18 Attend Phys: Breonna Campos MD Discharge: 06/12/18 Date of : 38 Report #: [id number] THIS REPORT FOR: //name// CC: Elmer Campos DATE OF SERVICE: 06/09/2018 HISTORY OF PRESENT ILLNESS: This is a 78-year-old male patient who is an extremely poor historian. I talked to the patient's nurses and we talked to the patient's who is an equally poor historian. This patient was found passed out. He does not remember much about it. He says he had a seizure. When I asked him when was the last seizure he had, he said in 74. I do not think that history is correct. He had a vagus nerve stimulator put in at some time, but he has not got it checked. He does not believe he follows up with a neurologist because he does not think he needs that. He has a pretty extensive cardiac history. It looks like he is on dofetilide. He is also on Lamictal. Apparently, records indicate he did 100 mg p.o. q.i.d., but even with multiple efforts, we cannot confirm that. REVIEW OF SYSTEMS: Positive for sleep apnea, rheumatoid arthritis, right knee placement. He apparently had some cerebral bleed at one time. He has a vagus nerve stimulator put in, he has a history of aortic stenosis. He has a history of a CABG, but he apparently had a seizure, but has not had any seizure for more than 20 years according to him. He cannot tell me why the stimulator was put in and how severe the epilepsy was. I carried out a 14-point review of systems, but this is all I can get. PAST MEDICAL HISTORY: Positive for seizure, but I cannot get a good history in that regard. FAMILY HISTORY: Negative for early age seizures. SOCIAL HISTORY: He said he does not drink alcohol. PHYSICAL EXAMINATION: The patient's examination is pretty limited. He is alert. He can follow simple command. He can tell me what month it is, but cannot tell me what date it is. It took him a while, but ultimately said he is in [facility]. His memory and fund of knowledge is poor. Cranial nerve examination 2-12 mostly looks unremarkable. He moves all 4 extremities. He has some deformity of his feet, he does not know how old it is going on. Cardiac examinations appear noncontributory. He does not appear to have any respiratory difficulty. His blood pressure is 138/92, pulse is 97, and temperature is 87. LABORATORY DATA: Indicate his white count is normal. He does have some kidney dysfunction. He did have a CT scan of the head, [place] [address] CONSULTATION Name: MICHAEL ANDERSON Room: [address]#: [id number] Admission: 06/08/18 Attend Phys: Breonna Campos MD Discharge: 06/12/18 Date of : 39 Report #: [id number] IMPRESSION: Very difficult to form in this patient. He has aortic stenosis, looks like he has a myocardial infarction, any of those would have made him pass out. He could have had a seizure too, but apparently he has not had any seizure for a long time and he is getting an EEG done. I will review that. There is significant interaction between dofetilide and Lamictal. Therefore, I think Keppra may be a better medication for him, I started him on that. This is especially true, I cannot find whether he was taking his Lamictal and how long he has been on that. I discussed all of it with the patient in detail and spent a considerable amount of time with him trying to get to some place, but this is the best it could be done. I spent more than 50 minutes of time taking care of this patient today and majority of that time was spent counseling the patient about his neurological workup and what he needs to do and what we are planning to do and coordinating his care. Thank you very much. <ELECTRONICALLY SIGNED> By: Robert Winter MD 06/22/18 0950 1436 [id number] Winter MD /nt
--- NOTE | 2018-06-24 12:50 | CON ---
[address] [address] CONSULTATION Name: JUSTINMICHAEL Beverly Room: [address] IN M.R.#: [id number] Admission: 06/08/18 Attend Phys: Breonna Campos MD Discharge: 06/12/18 Date of : 39 Report #: [id number] THIS REPORT FOR: //name// CC: Elmer Campos REASON FOR CONSULTATION: Dystrophic painful toenails times 10. CHIEF COMPLAINT/HISTORY OF PRESENT ILLNESS: The patient was consulted for Podiatry consult for toenail debridement. The patient was admitted for a recent fall with elevated troponin. He has a history of seizures, rheumatoid arthritis, coronary artery disease, stroke. PHYSICAL EXAMINATION: Toenails are elongated, dystrophic and painful to palpation. No paronychia present. He has palpable dorsalis pedis and posterior tibial pulses bilaterally. 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 He has severe hallux valgus and rigid hammertoe deformities bilaterally due to rheumatoid arthritis. No open lesions noted. IMPRESSION: Onychomycosis, rheumatoid arthritis, hallux valgus, hammertoes. PLAN: Toenails were manually mechanically debrided times 10. The patient to follow up with me in my office. <ELECTRONICALLY SIGNED> By: Irineo Barrera DPM 06/24/18 1250 1300 [id number] Barrera DPM /casie
== END 2018-06-12 16:25 | DRG 280 ==
LOC: M.ERS 14:04 → M.2W 15:30 → M.TBA-ER 15:30 → M.2W 18:08
PROVIDERS: Emergency Medicine Emergency Medical Services; Internal Medicine Cardiovascular Disease; ADMIT Internal Medicine
PROC: 0HBRXZZ Excision of Toe Nail, External Approach (ICD-10-PCS; principal; 2018-06-10)
DX: I21.4 Non-ST elevation (NSTEMI) myocardial infarction (principal); G93.41 Metabolic encephalopathy; N17.0 Acute kidney failure with tubular necrosis; N39.0 Urinary tract infection, site not specified; Q85.9 Phakomatosis, unspecified; M06.9 Rheumatoid arthritis, unspecified; Z96.651 Presence of right artificial knee joint; I25.10 Atherosclerotic heart disease of native coronary artery without angina pectoris; I48.0 Paroxysmal atrial fibrillation; Y99.8 Other external cause status; N18.9 Chronic kidney disease, unspecified; E78.5 Hyperlipidemia, unspecified; F03.90 Unspecified dementia, unspecified severity, without behavioral disturbance, psychotic disturbance, mood disturbance, and anxiety; I35.0 Nonrheumatic aortic (valve) stenosis; I73.9 Peripheral vascular disease, unspecified; B35.1 Tinea unguium; M20.10 Hallux valgus (acquired), unspecified foot; G40.909 Epilepsy, unspecified, not intractable, without status epilepticus; I44.7 Left bundle-branch block, unspecified; Z95.1 Presence of aortocoronary bypass graft; Z95.5 Presence of coronary angioplasty implant and graft; Z86.73 Personal history of transient ischemic attack (TIA), and cerebral infarction without residual deficits; Z88.8 Allergy status to other drugs, medicaments and biological substances; Z88.6 Allergy status to analgesic agent; Z91.041 Radiographic dye allergy status; Z87.81 Personal history of (healed) traumatic fracture; Z82.49 Family history of ischemic heart disease and other diseases of the circulatory system; Z87.891 Personal history of nicotine dependence; Z79.82 Long term (current) use of aspirin; Z79.899 Other long term (current) drug therapy; W18.39XA Other fall on same level, initial encounter; Y93.89 Activity, other specified; Y92.098 Other place in other non-institutional residence as the place of occurrence of the external cause

== ENCOUNTER 2018-08-12 13:49 | Inpatient (IN) | payer MEDICARE, OTHER ==
[~2018-08-12] VITALS: Ht 170.2 cm; Wt 72.1 kg
--- NOTE | ~2018-08-12 | PROC ---
[address] [address] PROCEDURE REPORT Name: MICHAEL ANDERSON Room: [address] IN M.R.#: [id number] Admission: 08/12/18 Attend Phys: Cam Bragg MD Discharge: 08/17/18 Date of : 39 Report #: [id number] THIS REPORT FOR: //name// For GI report, please see the Provation report in Perceptive 7. By: 08Medical Records Staff VANITA /LOIS
[~2018-08-12 13:49] MED LIST changes: +FOLIC ACID1 MG PO; +KEPPRA 500 MG500 M1 PO; +LASIX 20 MG TAB20 MG PO; +MULTI VITAMIN1 EACH PO; +SIMVASTATIN40 MG PO; +XARELTO10 MG PO
[2018-08-12 13:50] VITALS: BP 120/60
[2018-08-12 14:34] LABS: ABSOLUTE BASOPHILS 0.1 thou/uL (0.0-0.2); ABSOLUTE EOSINOPHILS 0.4 thou/uL (0.0-0.7); ABSOLUTE LYMPHOCYTES 1.1 thou/uL (0.8-5.3); ABSOLUTE MONOCYTES 0.5 thou/uL (0.0-1.2); ABSOLUTE NEUTROPHILS 2.8 thou/uL (1.6-8.1); BASOPHILS 1.2 %; EOSINOPHILS 7.5 %; HEMATOCRIT 22.5 % (42.0-52.0); HEMOGLOBIN 7.4 gm/dL (14.0-18.0); LYMPHOCYTES 22.9 %; MCH 30.2 pg (26.0-34.0); MCHC 32.7 g/dL (28.0-37.0); MCV 92.4 fL (80.0-100.0); MONOCYTES 10.7 %; MPV 7.6 fl. (7.2-11.1); NUCLEATED RBCS 0 /100WBC; PLATELET COUNT* 140 thou/uL (150-400); POLYS 57.7 %; RBC 2.44 mil/uL (4.50-6.00); WBC 4.8 thou/uL (4.0-11.0)
[2018-08-12] MEDS ORDERED: TIKOSYN500 MCG PO (14:37)
[2018-08-12] MEDS ORDERED: SIMVASTATIN40 MG PO (14:39)
[2018-08-12] MEDS ORDERED: LAMICTAL XR100 MG PO (14:39)
[2018-08-12] MEDS ORDERED: PEGANONE PO (14:40)
[2018-08-12] MEDS ORDERED: PROZAC20 MG PO (14:40)
[2018-08-12] MEDS ORDERED: NORCO 5-325 TA1 EACH PO (14:41)
[2018-08-12 14:42] LABS: ANION GAP 8 mmol/L (7-16); BUN 35 mg/dL (7-18); CALCIUM 8.3 mg/dL (8.5-10.1); CHLORIDE 106 mmol/L (98-107); CO2 26 mmol/L (21-32); CREATININE 1.7 mg/dL (0.6-1.3); GLUCOSE 100 mg/dL (70-99); POTASSIUM 4.5 mmol/L (3.5-5.1); SODIUM 140 mmol/L (136-145)
[2018-08-12] MEDS ORDERED: METHOTREXATE 22.5 MG PO (14:42)
[2018-08-12] MEDS ORDERED: NAMENDA 10 MG T10 MG PO (14:42)
[2018-08-12] MEDS ORDERED: UNICOMPLEX M TA1 TA1 PO (14:43)
[2018-08-12] MEDS ORDERED: TUMS PO (14:43)
[2018-08-12] MEDS ORDERED: TOPROL XL25 MG PO (14:43)
[2018-08-12] MEDS ORDERED: KLOR-CON 1010 MEQ PO (14:43)
[2018-08-12] MEDS ORDERED: SENOKOT-S TABL1 EACH PO (14:43)
[2018-08-12] MEDS ORDERED: VITAMINC500 PO (14:43)
[2018-08-12 14:51] LABS: ALBUMIN 2.9 g/dL (3.4-5.0); ALKALINE PHOSPHATASE 63 U/L (46-116); SGOT 19 U/L (15-37); SGPT 15 U/L (30-65); TOTAL BILIRUBIN 0.2 mg/dL (<0.1-1.0); TOTAL PROTEIN 6.3 g/dL (6.4-8.2); TROPONIN-I LEVEL <0.06 ng/mL (<0.06)
[2018-08-12 14:53] LABS: ACETAMINOPHEN < 2 ug/mL (10-30); SALICYLATE < 2.8 mg/dL (2.8-20.0)
[2018-08-12 16:54] LABS: URINE BILIRUBIN NEGATIVE (Negative); URINE BLOOD TRACE (Negative); URINE CLARITY CLEAR; URINE COLOR YELLOW; URINE GLUCOSE-RANDOM NEGATIVE (Negative); URINE KETONES NEGATIVE (Negative); URINE LEUKOCYTES-REFLEX NEGATIVE (Negative); URINE NITRITE-REFLEX NEGATIVE (Negative); URINE PROTEIN NEGATIVE (Negative); URINE SPECIFIC GRAVITY 1.015 (1.005-1.030); URINE UROBILINOGEN 0.2 E.U./dl (0.2-1.0)
[2018-08-12 18:55] VITALS: BP 141/68
[2018-08-12 20:00] VITALS: BP 137/64
[2018-08-13 03:47] LABS: ABSOLUTE EOSINOPHILS 0.3 thou/uL (0.0-0.7); ABSOLUTE LYMPHOCYTES 1.1 thou/uL (0.8-5.3); ABSOLUTE MONOCYTES 0.6 thou/uL (0.0-1.2); ABSOLUTE NEUTROPHILS 3.7 thou/uL (1.6-8.1); BASOPHILS 0.8 %; EOSINOPHILS 5.2 %; HEMATOCRIT 21.4 % (42.0-52.0); LYMPHOCYTES 19.5 %; MCH 30.4 pg (26.0-34.0); MCHC 32.9 g/dL (28.0-37.0); MCV 92.3 fL (80.0-100.0); MONOCYTES 10.4 %; MPV 8.2 fl. (7.2-11.1); NUCLEATED RBCS 0 /100WBC; PLATELET COUNT* 133 thou/uL (150-400); POLYS 64.1 %; RBC 2.32 mil/uL (4.50-6.00); WBC 5.8 thou/uL (4.0-11.0)
[2018-08-13 04:06] LABS: CALCIUM 8.4 mg/dL (8.5-10.1); CREATININE 1.4 mg/dL (0.6-1.3); POTASSIUM 4.6 mmol/L (3.5-5.1)
[2018-08-13 07:55] VITALS: BP 104/52
[2018-08-13 16:00] VITALS: BP 154/67
--- NOTE | 2018-08-13 17:44 | EKG ---
[place] [address] ELECTROCARDIOGRAM REPORT Name: MICHAEL ANDERSON Room: [address] ADM IN M.R.#: [id number] Admission: 08/12/18 Attend Phys: Cam Bragg MD Discharge: Date of : 39 Report #: [id number] THIS REPORT FOR: //name// [facility] ED Test Date: 2018-08-12 Test Time: 15:23:36 Pat Name: MICHAEL ANDERSON Department: Room: [facility] Gender: M Interventional Neuroradiologist: ADAN : 1940 Requested By: Iliana Madrigal Order Number: [id number] MD: Carlos A Nascimento Measurements Intervals [place] Rate: 77 P: 73 [place]: 236 QRS: 32 QRSD: 163 T: 157 QT: 450 QTc: 510 Interpretive Statements Sinus rhythm Prolonged [place] interval Probable left atrial enlargement Left bundle branch block Compared to ECG 06/08/2018 14:22:53 Ventricular premature complex(es) no longer present Electronically Signed On 08-13-2018 17:44:30 INDUSTRIAL ENGINEERING DIRECTOR by Carlos A Nascimento [email or web address] <ELECTRONICALLY SIGNED> By: Carlos A Nascimento MD, FACC 08/13/18 1744 1523 1523 Carlos A Nascimento MD, FACC /EPI
[2018-08-14] VITALS: BP 118/64
[2018-08-14 05:09] LABS: HEMATOCRIT 23.9 % (42.0-52.0); HEMOGLOBIN 7.9 gm/dL (14.0-18.0); MCH 30.9 pg (26.0-34.0); MCV 93.6 fL (80.0-100.0); MPV 8.3 fl. (7.2-11.1); RBC 2.55 mil/uL (4.50-6.00); WBC 5.8 thou/uL (4.0-11.0)
[2018-08-14 05:28] LABS: CALCIUM 8.4 mg/dL (8.5-10.1); CREATININE 1.5 mg/dL (0.6-1.3); POTASSIUM 4.5 mmol/L (3.5-5.1)
[2018-08-14 07:24] VITALS: BP 118/64
[2018-08-14 08:00] VITALS: BP 123/60
[2018-08-14 13:49] LABS: HEMOGLOBIN 7.3 gm/dL (14.0-18.0); MCH 30.3 pg (26.0-34.0); NUCLEATED RBCS 0 /100WBC; RBC 2.41 mil/uL (4.50-6.00); RDW-CV 14.3 % (10.5-14.5)
[2018-08-14 13:51] LABS: ABSOLUTE LYMPHOCYTES 1.3 thou/uL (0.8-5.3); ABSOLUTE MONOCYTES 0.5 thou/uL (0.0-1.2); ABSOLUTE NEUTROPHILS 3.2 thou/uL (1.6-8.1); BASOPHILS 0.7 %; EOSINOPHILS 0.3 %; HEMATOCRIT 22.4 % (42.0-52.0); LYMPHOCYTES 26.1 %; MCHC 32.5 g/dL (28.0-37.0); MCV 93.2 fL (80.0-100.0); MONOCYTES 9.7 %; MPV 8.1 fl. (7.2-11.1); PLATELET COUNT* 110 thou/uL (150-400); POLYS 63.2 %
[2018-08-14 13:59] LABS: ALBUMIN 2.9 g/dL (3.4-5.0); CALCIUM 8.4 mg/dL (8.5-10.1); CREATININE 1.4 mg/dL (0.6-1.3); POTASSIUM 3.8 mmol/L (3.5-5.1); TOTAL BILIRUBIN 0.2 mg/dL (<0.1-1.0); TOTAL PROTEIN 6.5 g/dL (6.4-8.2)
[2018-08-14 15:43] LABS: ESR (SEDRATE) 60 mm/hr (0-20)
[2018-08-14 16:00] VITALS: BP 128/64
[2018-08-14 20:00] VITALS: BP 163/73
[2018-08-15 04:18] LABS: ABSOLUTE LYMPHOCYTES 0.8 thou/uL (0.8-5.3); ABSOLUTE MONOCYTES 0.1 thou/uL (0.0-1.2); HEMOGLOBIN 7.3 gm/dL (14.0-18.0); WBC 3.9 thou/uL (4.0-11.0)
[2018-08-15 04:21] LABS: BASOPHILS 0.4 %; LYMPHOCYTES 19.5 %; MCH 30.9 pg (26.0-34.0); MCHC 33.2 g/dL (28.0-37.0); MONOCYTES 2.9 %; MPV 8.1 fl. (7.2-11.1); NUCLEATED RBCS 0 /100WBC; PLATELET COUNT* 111 thou/uL (150-400); POLYS 77.2 %; RBC 2.37 mil/uL (4.50-6.00); RDW-CV 13.9 % (10.5-14.5)
[2018-08-15 04:27] LABS: CALCIUM 8.2 mg/dL (8.5-10.1); CREATININE 1.5 mg/dL (0.6-1.3); POTASSIUM 4.6 mmol/L (3.5-5.1)
[2018-08-15 08:00] VITALS: BP 167/78
[2018-08-15 12:00] VITALS: BP 128/71
[2018-08-15 16:00] VITALS: BP 93/57
[2018-08-15 20:40] VITALS: BP 137/60
[2018-08-16 08:45] VITALS: BP 117/69
[2018-08-16 16:45] VITALS: BP 119/59
[2018-08-16 20:00] VITALS: BP 92/59
[2018-08-17 09:00] VITALS: BP 134/65
[2018-08-17] MEDS ORDERED: KLOR-CON 1010 MEQ PO (15:19)
[2018-08-17] MEDS ORDERED: PEGANONE PO (15:46)
[2018-08-17] MEDS ORDERED: VITAMIN D1000 UNI1 PO (15:53)
[2018-08-17 16:00] VITALS: BP 159/90
[2018-08-17 16:09] VITALS: BP 134/65
[2018-08-17 17:31] VITALS: BP 134/65
--- NOTE | 2018-08-19 11:38 | CON ---
[address] [address] CONSULTATION Name: MICHAEL ANDERSON Room: [address] IN ..#: [id number] Admission: 08/12/18 Attend Phys: Cam Bragg MD Discharge: 08/17/18 Date of : 39 Report #: [id number] THIS REPORT FOR: //name// CC: Anjana Bragg HISTORY OF PRESENT ILLNESS: This is a pleasant 78-year-old gentleman with a past medical history significant for hypertension, heart failure, coronary artery bypass ____, seizure disorder, who is presenting with bright red blood per rectum. The patient reports that he sat down to stool when he felt the urge to pass stool yesterday, noted large amount of blood in his stool. The patient reports blood was large enough to turn the water in the toilet bowl red in color and stain the corners of the toilet bowl with red color. The patient denies any abdominal pain or cramps with the bowel movement. The patient also denies any rectal pain. The patient denies nausea, vomiting or further episodes of bloody bowel movements since then. The patient reports he did have a colonoscopy prior, but cannot recollect when. The patient denies systemic symptoms such as loss of consciousness, sweating, shortness of breath or chest pain. PAST MEDICAL HISTORY: The patient has a history of coronary artery disease, seizure disorder, prior history of CVA and sleep apnea. PAST SURGICAL HISTORY: The patient had coronary artery bypass surgery in 1984 and then again in 1999. He reports having a right carotid endarterectomy in the past and had a vagal nerve stimulator for history of seizures. FAMILY HISTORY: There is no family history of colorectal cancer. SOCIAL HISTORY: The patient quit smoking 20 years back and reports occasional alcohol use. He denies recreational drug use. REVIEW OF SYSTEMS: A comprehensive 10-point review of systems is negative except for what was mentioned in the HPI. PHYSICAL EXAMINATION: VITAL SIGNS: Temperature 37.7, pulse rate 78, respirations 18 and blood pressure 151/67. GENERAL: The patient is alert, awake and oriented x 3. HEENT: Pupils are equal, round, reactive to light and accommodation. Mucous membranes are moist. There is no congestion. LUNGS: Clear to auscultation bilaterally. CARDIOVASCULAR: Rate and rhythm regular, S1, S2 present. ABDOMEN: Soft. There is no distention, guarding or rigidity. EXTREMITIES: Warm and well perfused. SKIN: Warm and dry. [place] [address] CONSULTATION Name: MICHAEL ANDERSON Room: [address]#: [id number] Admission: 08/12/18 Attend Phys: Cam Bragg MD Discharge: 08/17/18 Date of : 39 Report #: [id number] LABORATORY DATA: Hemoglobin 7.0, hematocrit 21.4, MCV 92.3, platelet count 133 and WBC count 5.8. Sodium 141, potassium 4.6, chloride 108, bicarbonate 24, BUN 27, creatinine 1.4. Iron saturation is 12. Total bilirubin is 0.2. ASSESSMENT AND PLAN: This is a pleasant 78-year-old gentleman with a past medical history as mentioned above presenting with one episode of large volume painless hematochezia. The patient also noted to have iron deficiency anemia on labs. We will proceed with EGD and colonoscopy for evaluation of the iron deficiency anemia and hematochezia and make further recommendations based on the results of these tests. <ELECTRONICALLY SIGNED> By: José Manuel Dejesus MD 08/19/18 1138 2246 0049José Manuel Dejesus MD /nt
--- NOTE | 2018-08-20 13:07 | PATH ---
[address] [address] PATHOLOGY RPT PROCEDURE Name: MICHAEL DAVIS Room: [address] IN M.R.#: [id number] Admission: 08/12/18 Date of : 39 Discharge: 08/17/18 Report #: [id number] Path Case #: [id number] [facility] Accession Number: [id number] . 01 Material submitted: . MID TRANSVERSE COLON POLYP . 01 Clinical history: . None provided . 02 Diagnosis: Mid transverse colon polyp: - TUBULOVILLOUS ADENOMA WITH FOCAL HIGH GRADE DYSPLASIA. - Adenomatous change involving cauterized / inked margin. See comment. . (EDDA:mmshirin; 08/18/18) QL/08/18/2018 . 02 Comment: Reviewed with Dr. Velma Gorman who agrees with the diagnosis. Dr. Lim notified on am of 08/19/2018. . (EDDA:mml; 08/18/18) . 02 Electronically signed: . Sancho Pearson MD, Pathologist NPI- [id number] . 01 Gross description: . Received in formalin labeled "Michael Davis, mid transverse colon polyp," is a 1.3 x 0.7 x 0.8 cm polypoid piece of dowell soft tissue. The margin is inked and the specimen is sectioned perpendicular to the margin and entirely submitted in cassettes A1 and A2. (TSD; 08/14/2018) TOB/TOB . 02 Pathologist provided ICD-10: D12.3 . 02 CPT . 940619 Specimen Comment: A courtesy copy of this report has been sent to Specimen Comment: [phone]. Specimen Comment: Report sent to DR CERVANTES Specimen Comment: A duplicate report has been generated due to demographic updates. Performed at: [place] [address] PATHOLOGY RPT PROCEDURE Name: MICHAEL DAVIS Room: [address]#: [id number] Admission: 08/12/18 Date of : 39 Discharge: 08/17/18 Report #: [id number] Path Case #: [id number] [address] [facility] [address], [place], [place] [address] MD Ck Childers MD Phone: [phone] Performed at: [address], [place], [place] [id number] MD Sancho Pearson MD Phone: [phone]
== END 2018-08-17 16:50 | DRG 377 ==
LOC: M.ERS 13:49 → M.TBA-ER 16:24 → M.3W 16:24
PROVIDERS: Internal Medicine Gastroenterology; Nurse Practitioner Family; ADMIT Family Medicine
PROC: 0DBL8ZZ Excision of Transverse Colon, Via Natural or Artificial Opening Endoscopic (ICD-10-PCS; principal; 2018-08-14)
PROC: 0DJ08ZZ Inspection of Upper Intestinal Tract, Via Natural or Artificial Opening Endoscopic (ICD-10-PCS; principal; 2018-08-14)
DX: K92.2 Gastrointestinal hemorrhage, unspecified (principal); G93.41 Metabolic encephalopathy; I13.0 Hypertensive heart and chronic kidney disease with heart failure and stage 1 through stage 4 chronic kidney disease, or unspecified chronic kidney disease; N18.4 Chronic kidney disease, stage 4 (severe); I50.42 Chronic combined systolic (congestive) and diastolic (congestive) heart failure; I25.10 Atherosclerotic heart disease of native coronary artery without angina pectoris; K64.9 Unspecified hemorrhoids; D12.3 Benign neoplasm of transverse colon; R44.1 Visual hallucinations; S16.1XXA Strain of muscle, fascia and tendon at neck level, initial encounter; G40.909 Epilepsy, unspecified, not intractable, without status epilepticus; I73.9 Peripheral vascular disease, unspecified; R63.4 Abnormal weight loss; W01.0XXA Fall on same level from slipping, tripping and stumbling without subsequent striking against object, initial encounter; F32.9 Major depressive disorder, single episode, unspecified; S70.01XA Contusion of right hip, initial encounter; Z96.651 Presence of right artificial knee joint; H91.90 Unspecified hearing loss, unspecified ear; M06.9 Rheumatoid arthritis, unspecified; Z95.1 Presence of aortocoronary bypass graft; Z95.5 Presence of coronary angioplasty implant and graft; Z79.82 Long term (current) use of aspirin; Z79.899 Other long term (current) drug therapy; Z88.5 Allergy status to narcotic agent; Z88.8 Allergy status to other drugs, medicaments and biological substances; Z91.041 Radiographic dye allergy status; Y93.89 Activity, other specified; Y92.89 Other specified places as the place of occurrence of the external cause; Y99.8 Other external cause status; Z86.73 Personal history of transient ischemic attack (TIA), and cerebral infarction without residual deficits; Z82.49 Family history of ischemic heart disease and other diseases of the circulatory system; Z87.891 Personal history of nicotine dependence; Z68.24 Body mass index [BMI] 24.0-24.9, adult; D50.8 Other iron deficiency anemias

== ENCOUNTER 2018-09-29 05:27 | Inpatient (IN) | payer MEDICARE, OTHER ==
[~2018-09-29] VITALS: Ht 172.7 cm; Wt 75.7 kg
[~2018-09-29 05:27] MED LIST changes: +KLOR-CON 1010 MEQ PO; +LAMICTAL XR100 MG PO; +METHOTREXATE 22.5 MG PO; +NAMENDA 10 MG T10 MG PO; +SENOKOT-S TABL1 EACH PO; +TOPROL XL25 MG PO; +TUMS PO; +UNICOMPLEX M TA1 TA1 PO; +VITAMIN D1000 UNI1 PO; +VITAMINC500 PO
[2018-09-29] MEDS ORDERED: SEROQUEL 25 MG25 M1 PO (05:45)
[2018-09-29] MEDS ORDERED: LIPITOR 20 MG T20 M1 PO (05:45)
[2018-09-29] MEDS ORDERED: SEROQUEL 25 MG25 M1 (05:46)
[2018-09-29 05:53] LABS: ABSOLUTE BASOPHILS 0.1 thou/uL (0.0-0.2); ABSOLUTE EOSINOPHILS 0.4 thou/uL (0.0-0.7); ABSOLUTE LYMPHOCYTES 1.3 thou/uL (0.8-5.3); ABSOLUTE MONOCYTES 0.5 thou/uL (0.0-1.2); BASOPHILS 1.1 %; EOSINOPHILS 5.8 %; HEMATOCRIT 27.7 % (42.0-52.0); HEMOGLOBIN 9.2 gm/dL (14.0-18.0); LYMPHOCYTES 20.6 %; MCH 31.2 pg (26.0-34.0); MCHC 33.3 g/dL (28.0-37.0); MCV 93.9 fL (80.0-100.0); MONOCYTES 8.3 %; MPV 7.9 fl. (7.2-11.1); NUCLEATED RBCS 0 /100WBC; PLATELET COUNT* 141 thou/uL (150-400); POLYS 64.2 %; RBC 2.95 mil/uL (4.50-6.00); RDW-CV 15.4 % (10.5-14.5); WBC 6.2 thou/uL (4.0-11.0)
[2018-09-29 05:58] LABS: APTT 26.4 Seconds (25.0-31.3); PROTIME 10.2 Seconds (9.20-11.50)
[2018-09-29 06:15] LABS: ALBUMIN 3.1 g/dL (3.4-5.0); ALKALINE PHOSPHATASE 69 U/L (46-116); ANION GAP 8 mmol/L (7-16); BUN 28 mg/dL (7-18); CALCIUM 8.9 mg/dL (8.5-10.1); CHLORIDE 108 mmol/L (98-107); CO2 25 mmol/L (21-32); CREATININE 1.6 mg/dL (0.6-1.3); GLUCOSE 98 mg/dL (70-99); NT-PRO BRAIN NAT PEPTIDE 1378 pg/mL (<300); POTASSIUM 5.5 mmol/L (3.5-5.1); SGOT 25 U/L (15-37); SGPT 18 U/L (30-65); SODIUM 141 mmol/L (136-145); TOTAL BILIRUBIN 0.1 mg/dL (<0.1-1.0); TOTAL PROTEIN 6.9 g/dL (6.4-8.2); TROPONIN-I LEVEL <0.06 ng/mL (<0.06)
[2018-09-29 07:07] LABS: BE -2.1 mmol/L (-2 to +3); HCO3 23.3 mmol/L (22.0-26.0); pH 7.352 (7.340-7.450)
[2018-09-29 07:10] LABS: PO2 147.6 mmHg (75.0-100.0)
[2018-09-29 08:15] VITALS: BP 145/74
[2018-09-29 09:27] LABS: ABSOLUTE BASOPHILS 0.1 thou/uL (0.0-0.2); ABSOLUTE EOSINOPHILS 0.3 thou/uL (0.0-0.7); ABSOLUTE MONOCYTES 0.4 thou/uL (0.0-1.2); ABSOLUTE NEUTROPHILS 4.3 thou/uL (1.6-8.1); BASOPHILS 1.2 %; EOSINOPHILS 4.7 %; HEMATOCRIT 26.1 % (42.0-52.0); HEMOGLOBIN 8.7 gm/dL (14.0-18.0); LYMPHOCYTES 16.8 %; MCH 31.2 pg (26.0-34.0); MCHC 33.2 g/dL (28.0-37.0); MCV 94.2 fL (80.0-100.0); MONOCYTES 6.9 %; NUCLEATED RBCS 0 /100WBC; PLATELET COUNT* 130 thou/uL (150-400); POLYS 70.4 %; RBC 2.77 mil/uL (4.50-6.00); RDW-CV 15.1 % (10.5-14.5); WBC 6.1 thou/uL (4.0-11.0)
--- NOTE | 2018-09-29 11:28 | NUR ---
MET WITH PT TO DISCUSS HOME SITUATION/DC PLANNING. PT IS LTC RESIDENT AT [facility]. HIS IS THERE IN SNF. PT USES [facility]. HE C/O THAT IT'S 'COLD' THERE. PLAN IS FOR HIM TO RETURN THERE AT DC. SPOKE WITH [facility], THEY WILL ACCEPT BACK AT [place]. TRIED TO CALL ADRIANA/ ON CELL, NO ANSWER. LEFT MESSAGE WITH HARRY TO HAVE HER CALL CM. WILL FOLLOW
[2018-09-29 12:38] VITALS: BP 138/72
--- NOTE | 2018-09-29 13:07 | NUR ---
PATIENT ADMITTED INTO 226 THIS AM FROM ER. PATIENT IS ALERT AND ORIENTED X 4. HE C/O CHRONIC ARTHRITIC PAIN. PATIENT ASSISTED WITH ADLS. HE HAS A HYATT TO DD PER HIS REQUEST PLACED BY ER. IV FLUIDS STARTED PER ORDER. PATIENT REPOSITIONED Q 2 HR. TELE SHOWS A FIB WITH BBB. PATIENT IS ON FALL PRECAUTIONS. BED ALARM IS ON. HE IS RESTING QUIETLY AT THIS TIME.
[2018-09-29 15:19] VITALS: BP 95/46
--- NOTE | 2018-09-29 16:25 | EKG ---
[place] [address] ELECTROCARDIOGRAM REPORT Name: MICHAEL ANDERSON Room: [address] ADM IN M.R.#: [id number] Admission: 09/29/18 Attend Phys: Cam Bragg MD Discharge: Date of : 39 Report #: [id number] THIS REPORT FOR: //name// [facility] ED Test Date: 2018-09-29 Test Time: 05:30:40 Pat Name: MICHAEL ANDERSON Department: Room: [facility] Gender: M Data Center Solutions Architect: : 1940 Requested By: Sophia Richmond Order Number: [id number] MD: Elmer Miller Measurements Intervals [place] Rate: 72 P: -26 SC: 68 QRS: 10 QRSD: 162 T: 148 QT: 470 QTc: 515 Interpretive Statements Sinus rhythm Left bundle branch block Electronically Signed On 09-29-2018 16:25:36 RESTAURANT ASSISTANT MANAGER by Elmer Miller [email or web address] <ELECTRONICALLY SIGNED> By: Elmer Miller MD, [facility] 09/29/18 1625 0530 0530 Elmer Miller MD, FACC /EPI
--- NOTE | 2018-09-29 16:26 | EKG ---
[place] [address] ELECTROCARDIOGRAM REPORT Name: MICHAEL ANDERSON Room: [address] ADM IN M.R.#: [id number] Admission: 09/29/18 Attend Phys: Cam Bragg MD Discharge: Date of : 39 Report #: [id number] THIS REPORT FOR: //name// [facility] ED Test Date: 2018-09-29 Test Time: 06:42:23 Pat Name: MICHAEL ANDERSON Department: Room: [address] Gender: M China Painter: : 1940 Requested By: Sophia Richmond Order Number: [id number] MD: Elmer Miller Measurements Intervals [place] Rate: 65 P: 53 [place]: 274 QRS: 19 QRSD: 158 T: 138 QT: 471 QTc: 490 Interpretive Statements Sinus rhythm Prolonged [place] interval Left bundle branch block Compared to ECG 08/12/2018 15:23:36 No significant changes Electronically Signed On 09-29-2018 16:26:06 BIAS MACHINE OPERATOR by Elmer Miller [email or web address] <ELECTRONICALLY SIGNED> By: Elmer Miller MD, [facility] 09/29/18 1626 Elmer Miller MD, [facility] /EPI
[2018-09-29 18:35] LABS: URINE BILIRUBIN NEGATIVE (Negative); URINE BLOOD NEGATIVE (Negative); URINE CLARITY CLEAR; URINE COLOR YELLOW; URINE GLUCOSE-RANDOM NEGATIVE (Negative); URINE KETONES NEGATIVE (Negative); URINE LEUKOCYTES 1+ (Negative); URINE NITRITE NEGATIVE (Negative); URINE PROTEIN NEGATIVE (Negative); URINE UROBILINOGEN 0.2 E.U./dl (0.2-1.0)
[2018-09-29 18:45] LABS: HYALINE CASTS 0-3 Few /LPF (None Seen); MUCUS None Seen strn/LPF (None Seen); SQUAMOUS NONE SEEN /LPF (0-3)
[2018-09-29 18:46] LABS: BACTERIA 1-9 Few /HPF (None Seen); CRYSTALS None Seen /LPF (None Seen); URINE RBC None Seen /HPF (0-2); URINE WBC 0-5 Rare /HPF (0-5)
[2018-09-29 20:00] VITALS: BP 155/76
[2018-09-30] VITALS: BP 96/53
[2018-09-30 04:00] VITALS: BP 139/67
--- NOTE | 2018-09-30 04:56 | NUR ---
ASSUMED CARE OF PT AFTER REPORT AT 1930. PT A&OX4. VSS. PHYSICAL ASSESSMENT COMLPETED AND CHARTED. PT ON RA WITH 95% O2 SAT. PT TRACING SR/1ST DEG/BBB ON TELE. PT WITH HYATT TO DEPENDENT DRAIN. PT COMPLAINED WITH GENERALIZED BODY PAIN (ARTHRITIS) WITH PAIN SCALE OF 9/10-PAIN MEDS GIVEN PER MAR. PT RESTED WELL ON BED. HOURLY ROUNDING OBSERVED. CALL LIGHT WITHIN REACH. BED IN LOW POSITION.
[2018-09-30 08:00] VITALS: BP 163/76
--- NOTE | 2018-09-30 11:00 | NUR ---
SPOKE WITH /ADRIANA OVER THE PHONE. PLAN IS FOR PT RETURN TO [facility]. WILL FOLLOW
--- NOTE | 2018-09-30 11:39 | NUR ---
RECEIVED REPORT FROM MARIANA AND ASSUMED CARE OF PT @ 4174.PT IS A/O X4,VSS,TRACING SR WITH 1ST AND BBB ON THE MONITOR.ASSESSMENT CHARTED.IV PATENT AND SALINE LOCKED.PT IS CALM AND COOPERATIVE WITH C/O ARTHRITIS PAIN-MEDICATIONS GIVEN.PT IS UP WITH ASSIST OF ONE TO CHAIR AND BSC.PT LEFT SITTING IN CHAIR WITH CALL LIGHT AND FALL PRECAUTIONS IN PLACE. WILL CONTINUE TO MONITOR.
[2018-09-30 11:45] VITALS: BP 112/58
[2018-09-30 15:21] VITALS: BP 147/66
--- NOTE | 2018-09-30 16:30 | NUR ---
SPOKE WITH WEAPONS MECHANIC AT [facility] TO UPDATE HER ON PT'S CONDITION. THEY ARE PLANNING ON PT RETURNING WHEN READY FOR DISCHARGE.
--- NOTE | 2018-09-30 17:42 | NUR ---
VSS.CARDIAC MONITORING IN PLACE WITH NO CHANGES.PT REMAINS ON ROOM AIR.PT PROGRESSING TOWARDS GOALS.PAIN MANAGED WELL WITH PO MEDICATIONS.IV PATENT WITH IVF INFUSING PER ORDERS.IV ANTIBIOTICS GIVEN.PT SAT UP IN THE CHAIR FOR SEVERAL HOURS.HOURLY ROUNDING COMPELTED FOR PT SAFETY.CALL LIGHT AND FALL PRECAUTIONS IN PLACE.WILL CONTINUE TO MONITOR FOR DURATION OF SHIFT.
[2018-09-30 19:50] VITALS: BP 164/73
[2018-10-01] VITALS: BP 155/70
[2018-10-01 04:00] VITALS: BP 173/75
[2018-10-01 05:23] LABS: ABSOLUTE BASOPHILS 0.1 thou/uL (0.0-0.2); ABSOLUTE EOSINOPHILS 0.4 thou/uL (0.0-0.7); ABSOLUTE LYMPHOCYTES 1.4 thou/uL (0.8-5.3); ABSOLUTE MONOCYTES 0.6 thou/uL (0.0-1.2); ABSOLUTE NEUTROPHILS 4.3 thou/uL (1.6-8.1); BASOPHILS 0.9 %; EOSINOPHILS 6.4 %; HEMATOCRIT 26.5 % (42.0-52.0); HEMOGLOBIN 8.9 gm/dL (14.0-18.0); LYMPHOCYTES 20.4 %; MCH 31.4 pg (26.0-34.0); MCHC 33.7 g/dL (28.0-37.0); MCV 93.4 fL (80.0-100.0); MONOCYTES 8.9 %; MPV 8.3 fl. (7.2-11.1); NUCLEATED RBCS 0 /100WBC; PLATELET COUNT* 121 thou/uL (150-400); POLYS 63.4 %; RBC 2.83 mil/uL (4.50-6.00); RDW-CV 14.9 % (10.5-14.5); WBC 6.8 thou/uL (4.0-11.0)
--- NOTE | 2018-10-01 06:03 | NUR ---
VITALS WNL. SEE MAR. SEE CHARTING. FALL PRECAUTIONS IN PLACE. HOURLY ROUNDING FOR SAFETY.
--- NOTE | 2018-10-01 07:15 | NUR ---
CHANGE OF SHIFT, BEDSIDE REPORT GIVEN PATIENT SEEN AT BEDSIDE, IN BED WATCHING TV ASSUMED PATIENT CARE
[2018-10-01 08:00] VITALS: BP 113/61
[2018-10-01 10:18] LABS: CALCIUM 8.7 mg/dL (8.5-10.1); CREATININE 1.1 mg/dL (0.6-1.3); POTASSIUM 4.6 mmol/L (3.5-5.1)
[2018-10-01 11:35] VITALS: BP 113/61
[2018-10-01] MEDS ORDERED: AZITHROMYCIN 2250 MG PO (11:56)
[2018-10-01 12:00] VITALS: BP 147/69
--- NOTE | 2018-10-01 13:30 | NUR ---
ORDERS NOTED FOR DC BACK TO [facility]. CALLED AND FAXED ORDERS TO [facility]. SHE ARRANGED FOR W/C [facility] AT 3PM. CHART COPIED. RN HAS NUMBER TO CALL REPORT. PT AWARE AND CALLED TO NOTIFY
--- NOTE | 2018-10-01 15:36 | NUR ---
PATIENT DISCHARGED TO SNF, [facility] IV AND HEART MONITOR REMOVED PERSONAL BELONGINGS RETURNED REPORT GIVEN TO SAMY NURSE ORDERS GIVEN, ACKNOLEDEGED, COPIES SENT PATIENT LEFT VIA WC IN GOOD CONDITION TO [facility]
== END 2018-10-01 15:41 | DRG 177 ==
LOC: M.ERS 05:27 → M.2W 06:23 → M.TBA-ER 06:23 → M.2W 08:42
PROVIDERS: Internal Medicine; Personal Emergency Response Attendant; ADMIT Family Medicine
DX: J69.0 Pneumonitis due to inhalation of food and vomit (principal); I50.33 Acute on chronic diastolic (congestive) heart failure; N17.9 Acute kidney failure, unspecified; M06.9 Rheumatoid arthritis, unspecified; E87.5 Hyperkalemia; Z96.651 Presence of right artificial knee joint; I25.119 Atherosclerotic heart disease of native coronary artery with unspecified angina pectoris; N18.3 Chronic kidney disease, stage 3 (moderate); Z95.1 Presence of aortocoronary bypass graft; Z86.73 Personal history of transient ischemic attack (TIA), and cerebral infarction without residual deficits; Z88.8 Allergy status to other drugs, medicaments and biological substances; Z88.6 Allergy status to analgesic agent; Z91.041 Radiographic dye allergy status; Z82.49 Family history of ischemic heart disease and other diseases of the circulatory system; Z79.82 Long term (current) use of aspirin; Z79.899 Other long term (current) drug therapy; Z95.5 Presence of coronary angioplasty implant and graft

== ENCOUNTER 2019-04-21 14:21 | Inpatient (IN) | payer MEDICARE, MEDICAID ==
[~2019-04-21] VITALS: Ht 170.2 cm; Wt 81.9 kg
[~2019-04-21 14:21] MED LIST changes: +AZITHROMYCIN 2250 MG PO; +ELIQUIS5 MG PO; +MELATONIN3 MG PO; +NORCO 5-325 TA1 EAC1 PO; +ONDANSETRON HCL4 M2 PO; +SEROQUEL 25 MG25 M1; +SEROQUEL 25 MG25 M1 PO; +TYLENOL325 MG PO; +VELTASSA8.4 GM PO
[2019-04-21 14:23] VITALS: BP 129/70
[2019-04-21 14:45] LABS: ABSOLUTE BASOPHILS 0.1 thou/uL (0.0-0.2); ABSOLUTE EOSINOPHILS 0.4 thou/uL (0.0-0.7); ABSOLUTE LYMPHOCYTES 1.2 thou/uL (0.8-5.3); ABSOLUTE MONOCYTES 0.7 thou/uL (0.0-1.2); ABSOLUTE NEUTROPHILS 5.2 thou/uL (1.6-8.1); HEMATOCRIT 25.1 % (42.0-52.0); HEMOGLOBIN 8.3 gm/dL (14.0-18.0); LYMPHOCYTES 15.4 %; MCH 29.4 pg (26.0-34.0); MCHC 33.1 g/dL (28.0-37.0); MCV 88.8 fL (80.0-100.0); MONOCYTES 8.9 %; MPV 7.2 fl. (7.2-11.1); NUCLEATED RBCS 0 /100WBC; PLATELET COUNT* 182 thou/uL (150-400); POLYS 69.7 %; RBC 2.82 mil/uL (4.50-6.00); WBC 7.5 thou/uL (4.0-11.0)
[2019-04-21 14:55] LABS: ANION GAP 9 mmol/L (7-16); BUN 22 mg/dL (7-18); CALCIUM 8.8 mg/dL (8.5-10.1); CHLORIDE 105 mmol/L (98-107); CO2 27 mmol/L (21-32); CREATININE 1.4 mg/dL (0.6-1.3); GLUCOSE 107 mg/dL (70-99); SODIUM 141 mmol/L (136-145)
[2019-04-21 14:56] LABS: APTT 27.5 Seconds (25.0-31.3); INR 1.1; PROTIME 11.3 Seconds (9.20-11.50)
[2019-04-21 15:06] LABS: ALBUMIN 2.8 g/dL (3.4-5.0); ALKALINE PHOSPHATASE 70 U/L (46-116); NT-PRO BRAIN NAT PEPTIDE 6977 pg/mL (<300); SGOT 18 U/L (15-37); SGPT 19 U/L (30-65); TOTAL BILIRUBIN 0.2 mg/dL (<0.1-1.0); TOTAL PROTEIN 6.9 g/dL (6.4-8.2); TROPONIN-I LEVEL <0.06 ng/mL (<0.06)
[2019-04-21 17:15] VITALS: BP 142/78
[2019-04-21 17:19] VITALS: BP 130/67
--- NOTE | 2019-04-21 19:00 | NUR ---
RECEIVED REPORT FROM ER. PT ARRIVED TO TELE FLOOR AROUND 171. PT A&O X4, FORGETFUL AT TIMES. PT ORIENTED TO ROOM, BED AND CALL LIGHT, PT COMMUNICATES UNDERSTANDING. ADMISSION HISTORY, ASSESSMENT AND VITALS COMPLETED CHARTED. IV INTACT. PT DENIES PAIN OR DISCOMFFORT. TOLERATING DIET. UP WITH SBA TO BATHROOM TO VOID. PT CURRENTLY RESTIND IN BED. CALL LIGHT IS WITHIN REACH. HOUURLY ROUNDING PERFORMED. FALL PRECUATIONS IN PLACE.
[2019-04-21 20:00] VITALS: BP 132/66
[2019-04-21 23:53] VITALS: BP 134/81
[2019-04-22 04:00] VITALS: BP 133/76
[2019-04-22 04:35] LABS: ABSOLUTE BASOPHILS 0.1 thou/uL (0.0-0.2); ABSOLUTE EOSINOPHILS 0.4 thou/uL (0.0-0.7); ABSOLUTE LYMPHOCYTES 1.2 thou/uL (0.8-5.3); ABSOLUTE MONOCYTES 0.5 thou/uL (0.0-1.2); ABSOLUTE NEUTROPHILS 3.9 thou/uL (1.6-8.1); EOSINOPHILS 6.4 %; HEMATOCRIT 24.6 % (42.0-52.0); HEMOGLOBIN 7.8 gm/dL (14.0-18.0); LYMPHOCYTES 19.5 %; MCH 28.7 pg (26.0-34.0); MCHC 31.8 g/dL (28.0-37.0); MCV 90.4 fL (80.0-100.0); MONOCYTES 8.7 %; NUCLEATED RBCS 0 /100WBC; PLATELET COUNT* 171 thou/uL (150-400); POLYS 64.4 %; RBC 2.72 mil/uL (4.50-6.00); RDW-CV 14.4 % (10.5-14.5); WBC 6.1 thou/uL (4.0-11.0)
[2019-04-22 04:44] LABS: CALCIUM 8.5 mg/dL (8.5-10.1); CREATININE 1.3 mg/dL (0.6-1.3); POTASSIUM 3.9 mmol/L (3.5-5.1)
[2019-04-22 08:44] VITALS: BP 135/66
--- NOTE | 2019-04-22 10:13 | EKG ---
[place] [address] ELECTROCARDIOGRAM REPORT Name: MICHAEL ANDERSON Room: [address] ADM IN .R.#: [id number] Admission: 04/21/19 Attend Phys: Kita Blackburn Discharge: Date of : 38 Report #: [id number] THIS REPORT FOR: //name// [facility] ED Test Date: 2019-04-21 Test Time: 15:50:43 Pat Name: MICHAEL ANDERSON Department: Room: [facility] Gender: M Heavy Duty Mechanic: [place] : 1940 Requested By: Scar Bryant Order Number: [id number] MD: Carlos A Nascimento Measurements Intervals [place] Rate: 62 P: [place]: QRS: 31 QRSD: 159 T: 184 QT: 430 QTc: 437 Interpretive Statements Atrial fibrillation Left bundle branch block Compared to ECG 04/05/2019 18:52:24 No significant changes Electronically Signed On 04-22-2019 10:13:02 CDT by Carlos A Nascimento [email or web address] <ELECTRONICALLY SIGNED> By: Carlos A Nascimento MD, [facility] 04/22/19 1013 1550 1550 Carlos A Nascimento MD, FACC /EPI
[2019-04-22 11:54] VITALS: BP 137/67
--- NOTE | 2019-04-22 13:32 | 2DMMODE ---
[place] [address] 2 D/M-MODE ECHOCARDIOGRAM Name: MICHAEL ANDERSON Room: [address] IN [facility]#: [id number] Admission: 04/21/19 Attend Phys: Gage Keene Discharge: Date of : 38 Date of Service: 04/22/19 1331 Report #: [id number] THIS REPORT FOR: //name// APPROVED REPORT Study performed: 04/22/2019 09:57:59 EXAM: Limited 2D Echocardiogram Patient Location: In-Patient Room #: 231 Status: routine BSA: 1.93 HR: 83 bpm BP: 135/66 mmHg Rhythm: Atrial Fibrillation Other Information Study Quality: Good Indications Atrial Fibrillation Dyspnea dizzy Limited echo to assess EF. Patient had full echo 3 weeks ago. Volumes Left Atrial Volume (Systole) LA ESV Index: 70.40 mL/m2 Left Ventricle The left ventricle is normal size. There is left ventricular systolic dyssynergy consistent with underlying bundle branch block. Mild concentric left ventricular hypertrophy. Left ventricular systolic function is mildly decreased. LVEF is 45-50%. Right Ventricle Right ventricle is mildly dilated. The right ventricular systolic function is normal. Atria Left atrium is severely dilated. Right atrium is moderately dilated. Aortic Valve Bioprosthetic aortic valve is present. [facility] [address] [place] [address] 2 D/M-MODE ECHOCARDIOGRAM Name: MICHAEL ANDERSON Room: [address] IN M.R.#: [id number] Admission: 04/21/19 Attend Phys: Gage Keene Discharge: Date of : 38 Date of Service: 04/22/19 133 Report #: [id number] Mitral Valve There is mitral annular calcification. Tricuspid Valve The tricuspid valve is normal in structure. Pulmonic Valve The pulmonary valve is normal in structure. Great Vessels The aortic root is normal in size. IVC is not well visualized. Pericardium There is no pericardial effusion. <Conclusion> The left ventricle is normal size. Mild concentric left ventricular hypertrophy. Left ventricular systolic function is mildly decreased. LVEF is 45-50%. There is left ventricular systolic dyssynergy consistent with underlying bundle branch block. Left atrium is severely dilated. Right atrium is moderately dilated. Bioprosthetic aortic valve is present. <ELECTRONICALLY SIGNED> By: Carlos A Nascimento MD, FACC 04/22/191330 30 30 Carlos A Nascimento MD, FACC /INF
--- NOTE | 2019-04-22 14:44 | NUR ---
SW met with pt to complete initial assessment, introduce self, and SW role. Pt continues to live at [facility] with his ; pt says that is his plan "for now". Pt has needed DME. Pt is not aware of any dc needs at this time. SW to continue to follow to assist with safe dc plan of back to [facility].
[2019-04-22 15:46] VITALS: BP 141/67
--- NOTE | 2019-04-22 16:41 | NUR ---
ASSUMED CARE OF PT AROUND 0730 THIS AM. REFER TO ASSESSMENT. VSS. TELE AFIB. RATE CONTROLLED. MAINTAINING SATS WNL ON RA. NO OTHER CONCERNS AT THIS TIME. CLWR. WCTM.
[2019-04-22 19:50] VITALS: BP 159/71
[2019-04-23] VITALS: BP 146/67
[2019-04-23 04:00] VITALS: BP 138/76
[2019-04-23 04:39] LABS: HEMATOCRIT 24.8 % (42.0-52.0); HEMOGLOBIN 7.9 gm/dL (14.0-18.0); MCH 28.7 pg (26.0-34.0); MCV 89.9 fL (80.0-100.0); MPV 7.3 fl. (7.2-11.1); RBC 2.76 mil/uL (4.50-6.00); RDW-CV 14.3 % (10.5-14.5); WBC 7.1 thou/uL (4.0-11.0)
[2019-04-23 05:03] LABS: CALCIUM 8.6 mg/dL (8.5-10.1); CREATININE 1.4 mg/dL (0.6-1.3)
--- NOTE | 2019-04-23 06:38 | NUR ---
PT ALERT AND ORIENTED. CONFUSION AND FORGETFULNESS NOTED ESPECIALLY THIS AM. VSS ON RA. PT HAD 2 SMALL BMs. BED ALARM ON. MEDS GIVEN PER EMAR. PT STARTED ON VANC FOR POSITIVE BLOOD CULTURE (GRAM + COCCI). ZOSYN ALSO GIVEN PER EMAR. CALL LIGHT WITHIN REACH. HOURLY ROUNDINGS MADE. WILL CONTINUE TO MONITOR.
[2019-04-23 08:00] VITALS: BP 144/80
--- NOTE | 2019-04-23 10:53 | NUR ---
TALENT ASSISTANT INFORMED BY THE PHYSICIAN THAT THE PATIENT MAY BE READY TO D/C TOMORROW. D/C TIRE MAINTENANCE TECHNICIAN SPOKE ATTEMPTED TO CONTACT JOSE WITH [facility] TO INFORM OF THIS, BUT SHE WAS NOT AVAILABLE. D/C TIRE MAINTENANCE TECHNICIAN FAXED PATIENT'S FACESHEET, AND UPDATED CLINICAL INFO. D/C TIRE MAINTENANCE TECHNICIAN AWAITING A RETURN CALL FROM JOSE TO DISCUSS PATIENT'S PENDING D/C. CM WILL REMAIN AVAILABLE TO ASSIST AND FOLLOW NEEDED. [facility] PHONE: [phone] FAX: [phone]
[2019-04-23 11:38] VITALS: BP 119/65
[2019-04-23 16:08] VITALS: BP 151/76
[2019-04-23 20:00] VITALS: BP 133/65
[2019-04-24 00:18] VITALS: BP 150/77
[2019-04-24 04:17] VITALS: BP 149/72
--- NOTE | 2019-04-24 06:21 | NUR ---
ASSUMED CARE FOR PT AFTER REPORT AT 1930. PT A&OX4. FORGETFUL & IMPULSIVE AT TIMES. VSS. PHYSICAL ASSESSMENT COMPLETED AND CHARTED. PT ON RA. PT TRACING AFIB BBB ON TELE. PT UP STANDBY TO RESTROOM. DENIES ANY PAIN OR DISCOMFORT. CALL LIGHT WITHIN REACH.
[2019-04-24 08:00] VITALS: BP 157/78
[2019-04-24 08:47] LABS: ABSOLUTE BASOPHILS 0.1 thou/uL (0.0-0.2); ABSOLUTE EOSINOPHILS 0.4 thou/uL (0.0-0.7); ABSOLUTE LYMPHOCYTES 0.8 thou/uL (0.8-5.3); ABSOLUTE MONOCYTES 0.6 thou/uL (0.0-1.2); BASOPHILS 1.1 %; EOSINOPHILS 4.6 %; HEMATOCRIT 26.7 % (42.0-52.0); HEMOGLOBIN 8.8 gm/dL (14.0-18.0); MCH 29.4 pg (26.0-34.0); MCHC 32.9 g/dL (28.0-37.0); MCV 89.5 fL (80.0-100.0); MONOCYTES 7.4 %; MPV 7.1 fl. (7.2-11.1); NUCLEATED RBCS 0 /100WBC; PLATELET COUNT* 217 thou/uL (150-400); POLYS 76.9 %; RBC 2.99 mil/uL (4.50-6.00); RDW-CV 14.3 % (10.5-14.5); WBC 7.8 thou/uL (4.0-11.0)
[2019-04-24 09:51] VITALS: BP 157/78
--- NOTE | 2019-04-24 10:32 | NUR ---
Received order to arrange d/c back to [facility] today. Called facility and spoke with intake. Faxed discharge orders to facility. Chart copied. Called pt's and left message. [facility] will provide w/c van transport at [phone]. No other needs identified.
--- NOTE | 2019-04-24 12:05 | NUR ---
VSS, ASSUMED CARE IN THE AM, ASSESSMENT PERFORMED AND CHARTED, FALL PRECAUTIONS IN PLACE AND CALL LIGHT IN REACH, PT IS A&O4 BUT CONFUSED, HE IS UP WITH STAND BY AND IS ON RA, TRACING AFIB ON THE MONITOR, PT DENIES ANY PAIN, PT GOAL IS TO D/C TO SNF, I HAVE RECEIEVD D/C ORDERS, TOOK OUT IV AND TELE MONITOR, I CALLED REPORT TO [facility] AND PROVITED CALL BACK, WILL FOLLOW WITH PLAN OF CARE.
[2019-04-24] MEDS ORDERED: AUGMENTIN 875-1 EACH PO (12:58)
== END 2019-04-24 13:30 | DRG 177 ==
LOC: M.ERS 14:21 → M.2W 15:47 → M.TBA-ER 15:47 → M.2W 17:14
PROVIDERS: Family Medicine; Internal Medicine; ADMIT Internal Medicine
DX: J15.6 Pneumonia due to other Gram-negative bacteria (principal); I50.43 Acute on chronic combined systolic (congestive) and diastolic (congestive) heart failure; E44.0 Moderate protein-calorie malnutrition; I25.10 Atherosclerotic heart disease of native coronary artery without angina pectoris; I48.91 Unspecified atrial fibrillation; N18.3 Chronic kidney disease, stage 3 (moderate); M06.9 Rheumatoid arthritis, unspecified; D64.9 Anemia, unspecified; E86.0 Dehydration; Z96.651 Presence of right artificial knee joint; I73.9 Peripheral vascular disease, unspecified; Z68.28 Body mass index [BMI] 28.0-28.9, adult; Z95.1 Presence of aortocoronary bypass graft; Z95.5 Presence of coronary angioplasty implant and graft; Z86.73 Personal history of transient ischemic attack (TIA), and cerebral infarction without residual deficits; Z91.81 History of falling; Z95.2 Presence of prosthetic heart valve; Z79.01 Long term (current) use of anticoagulants; Z79.82 Long term (current) use of aspirin; Z79.899 Other long term (current) drug therapy; Z88.5 Allergy status to narcotic agent; Z88.8 Allergy status to other drugs, medicaments and biological substances; Z91.041 Radiographic dye allergy status; Z82.49 Family history of ischemic heart disease and other diseases of the circulatory system

== ENCOUNTER 2020-01-18 01:03 | Emergency (ER) | payer MEDICARE, MEDICAID ==
[~2020-01-18] VITALS: Ht 170.2 cm; Wt 83.1 kg
[~2020-01-18 01:03] MED LIST changes: +AUGMENTIN 875-1 EACH PO
[2020-01-18] MEDS ORDERED: PREDNISONE 5 MG5 M1 PO (01:57)
[2020-01-18] MEDS ORDERED: DIGESTIVE PROB250 MG PO (01:58)
[2020-01-18] MEDS ORDERED: FLOMAX0.4 MG PO (01:58)
[2020-01-18] MEDS ORDERED: PRILOSEC OTC20 MG PO (01:58)
[2020-01-18] MEDS ORDERED: OLANZAPINE ODT5 MG PO ×2 (01:59→02:00)
[2020-01-18 02:00] LABS: HEMOGLOBIN 11.6 gm/dL (14.0-18.0); MCH 29.9 pg (26.0-34.0); MCHC 33.1 g/dL (28.0-37.0); MCV 90.1 fL (80.0-100.0); MPV 8.4 fl. (7.2-11.1); RBC 3.88 mil/uL (4.50-6.00); RDW-CV 15.3 % (10.5-14.5); WBC 8.4 thou/uL (4.0-11.0)
[2020-01-18] MEDS ORDERED: MILK OF MA400 MG/5 M PO (02:01)
[2020-01-18] MEDS ORDERED: ATIVAN0.5 M1 PO (02:02)
[2020-01-18 02:09] LABS: CALCIUM 9.3 mg/dL (8.5-10.1); POTASSIUM 3.9 mmol/L (3.5-5.1)
[2020-01-18 02:12] LABS: SALICYLATE < 2.8 mg/dL (2.8-20.0)
[2020-01-18 02:14] LABS: ALBUMIN 3.5 g/dL (3.4-5.0); TOTAL BILIRUBIN 0.5 mg/dL (<0.1-1.0)
[2020-01-18 02:22] LABS: ACETAMINOPHEN < 2 ug/mL (10-30); ALCOHOL < 10 mg/dL (<10)
[2020-01-18 02:26] LABS: URINE BILIRUBIN NEGATIVE (Negative); URINE BLOOD TRACE (Negative); URINE CLARITY CLEAR; URINE COLOR YELLOW; URINE GLUCOSE-RANDOM NEGATIVE (Negative); URINE KETONES NEGATIVE (Negative); URINE LEUKOCYTES NEGATIVE (Negative); URINE NITRITE NEGATIVE (Negative); URINE PROTEIN NEGATIVE (Negative); URINE SPECIFIC GRAVITY 1.025 (1.005-1.030); URINE UROBILINOGEN 0.2 E.U./dl (0.2-1.0)
[2020-01-18 02:51] LABS: AMP/METHAMP Negative (Negative); BARBITURATES Negative (Negative); BENZODIAZEPINES Negative (Negative); COCAINE Negative (Negative); METHADONE Negative (Negative); OPIATES POSITIVE (Negative); PCP Negative (Negative); THC Negative (Negative)
[2020-01-18] MEDS ORDERED: HALDOL5 MG/1 ML IM (03:00)
[2020-01-18 03:55] VITALS: BP 112/58
--- NOTE | 2020-01-18 14:36 | EKG ---
[place] [address] ELECTROCARDIOGRAM REPORT Name: MICHAEL ANDERSON Room: [facility]#: [id number] Admission: 01/18/20 Attend Phys: Discharge: Date of : 38 Date of Service: 01/18/20 0119 Report #: [id number] THIS REPORT FOR: //name// [facility] ED Test Date: 2020-01-18 Test Time: 01:19:51 Pat Name: MICHAEL ANDERSON Department: Room: Gender: Income Auditor: : 1940 Requested By: Sophia Richmond Order Number: [id number] MD: Carlos A Nascimento Measurements Intervals [place] Rate: 90 P: OK: QRS: 19 QRSD: 171 T: 177 QT: 433 QTc: 530 Interpretive Statements Atrial fibrillation Left bundle branch block Compared to ECG 04/21/2019 15:50:43 No significant changes Electronically Signed On 01-18-2020 14:34:18 CDT by Carlos A Nascimento [email or web address] <ELECTRONICALLY SIGNED> By: Carlos A Nascimento MD, [facility] 01/18/20 1434 0119 8 Carlos A Nascimento MD, FACC /EPI
== END 2020-01-18 03:57 | disposition home or self-care (01) ==
LOC: M.ERS 01:03
PROVIDERS: Personal Emergency Response Attendant
DX: F91.9 Conduct disorder, unspecified (principal); I25.10 Atherosclerotic heart disease of native coronary artery without angina pectoris; I48.91 Unspecified atrial fibrillation; I50.9 Heart failure, unspecified; N18.3 Chronic kidney disease, stage 3 (moderate); M06.9 Rheumatoid arthritis, unspecified; G47.30 Sleep apnea, unspecified; Z95.5 Presence of coronary angioplasty implant and graft; Z96.651 Presence of right artificial knee joint; Z91.041 Radiographic dye allergy status; Z88.6 Allergy status to analgesic agent; W18.39XA Other fall on same level, initial encounter; Y93.89 Activity, other specified; Y92.128 Other place in nursing home as the place of occurrence of the external cause; Y99.8 Other external cause status